=== PATIENT | female | born 1990 | race Caucasian/White ===

== ENCOUNTER 2018-03-12 11:42 | Inpatient (IN) | payer OTHER ==
[~2018-03-12] VITALS: Ht 175.3 cm; Wt 143.3 kg
[2018-03-12 12:03] VITALS: BP 161/88
[2018-03-12 12:34] LABS: HEMATOCRIT 36.4 % (36.0-47.0); HEMOGLOBIN 12.1 g/dL (12.0-15.5); RED BLOOD COUNT 4.01 x10^6/uL (3.50-5.40); RED CELL DISTRIBUTION WIDTH 15.3 % (11.5-14.5); WHITE BLOOD COUNT 12.3 x10^3/uL (4.0-11.0)
[2018-03-12 12:37] LABS: ALBUMIN 3.3 g/dL (3.4-5.0); ALBUMIN/GLOBULIN RATIO 0.8 (1.0-1.7); CALCIUM 9.2 mg/dL (8.5-10.1); CREATININE 0.6 mg/dL (0.6-1.0); GFR 118.2; POTASSIUM 3.9 mmol/L (3.5-5.1); TOTAL BILIRUBIN 2.7 mg/dL (0.2-1.0); TOTAL PROTEIN 7.6 g/dL (6.4-8.2)
[2018-03-12] MEDS ORDERED: IOHEXOL 300 MG/ML 75 ML VIAL. IV ONE (14:00)
[2018-03-12 14:36] VITALS: BP 136/94
--- NOTE | 2018-03-12 15:14 | RAD ---
PQRS Compliance Statement: One or more of the following individualized dose reduction techniques were utilized for this examination: 1. Automated exposure control 2. Adjustment of the mA and/or kV according to patient size 3. Use of iterative reconstruction technique CT CHEST WITH CONTRAST, PULMONARY ANGIOGRAM History: SHORT OF AIR, PNEUMONIA. Comparison: None. Technique: Helical CT of the chest was performed after the administration of 75 cc of Omnipaque 300 intravenous contrast according to PE protocol. Axial and coronal reconstructions were obtained. 3-D MIP images were constructed to better evaluate the pulmonary arteries. Findings: Pulmonary arteries are adequately opacified. There is no evidence of pulmonary embolism. Great vessels are normal caliber. Borderline-enlarged bilateral hilar lymph nodes. No mediastinal adenopathy. Cardiac size upper limits of normal. No pericardial effusion. There is trace right pleural effusion. Central airways are patent. There are patchy bilateral upper lobe groundglass opacities, recently confluent. There is interlobular septal thickening in the right upper and lower lobe. Patchy groundglass opacities are less confluent in the lower lobes than the upper lobes. Patchy groundglass opacities in the right middle lobe. Visualized upper abdomen unremarkable. No compression fracture in the thoracic spine. IMPRESSION: 1. There is no CT evidence of pulmonary embolus. 2. There are upper lobe predominant patchy groundglass opacities throughout the lungs. Considerations include atypical pneumonia or pulmonary edema. 3. Interlobular septal thickening suggests interstitial edema. 4. Trace right pleural effusion. 5. Borderline cardiomegaly. 6. Borderline-enlarged bilateral hilar lymph nodes may be reactive. Electronically signed by: Chavo Chambers MD (03/12/2018 3:11 PM) [id number]
[2018-03-12] MEDS: methylPREDNISolone SOD SUCC PF 40 MG/ML VIAL. IV SCH ×2 (15:25→21:34)
[2018-03-12] MEDS ORDERED: ALBU2.5V5 NEB (15:41)
[2018-03-12] MEDS ORDERED: ALBU8.5H8 INH (15:41)
[2018-03-12] MEDS ORDERED: IPRATRPIUM/ALBUTEROL 0.5/2.5MG 3 ML NEBU. NEB SCH (16:00)
[2018-03-12] MEDS ORDERED: FUROSEMIDE 20 MG/2 ML VIAL IVP ONE (16:30)
[2018-03-12] MEDS: HYDROcodone/APAP 5/325MG 1 TAB TABLET PO PRN ×2 (16:41→21:32)
[2018-03-12] MEDS: ENOXAPARIN 40 MG/0.4 ML SYRINGE. SQ SCH (16:44)
[2018-03-12] MEDS ORDERED: IPRATRPIUM/ALBUTEROL 0.5/2.5MG 3 ML NEBU. NEB PRN (17:00)
[2018-03-12] MEDS ORDERED: LISINOPRIL 5 MG TABLET. PO ONE (18:00)
[2018-03-12] MEDS ORDERED: FUROSEMIDE 40 MG/4 ML VIAL IVP ONE (18:00)
--- NOTE | 2018-03-12 18:00 | CONS ---
DATE OF CONSULTATION: 03/12/2018 REASON FOR CONSULTATION: Dyspnea and cardiomegaly. HISTORY OF PRESENT ILLNESS: The patient is a pleasant 27-year-old female with past medical history as noted below, who presented to the hospital in the setting of worsening cough, shortness of breath and possible exacerbation of asthma. Upon her initial evaluation, she was noted to have an elevated D-dimer and cardiomegaly on chest x-ray. Initial evaluation with CT scan was suggestive of pulmonary edema and therefore she was asked to be evaluated by Cardiology. In speaking with the patient, she has had some progressive dyspnea over the course of the last several weeks. She denies any specific angina. No syncope or palpitations. She reports that approximately 2 years ago, she had preeclampsia during with her twins and at that time was on antihypertensive therapy, but since then has not had any blood pressure medications. PAST MEDICAL HISTORY: 1. Preeclampsia with her 2 years ago. 2. Obesity. 3. Possible asthma. 4. Tobacco abuse related COPD. SOCIAL HISTORY: The patient denies any alcohol or illicit drug use. She smokes regularly. She has twins approximately 2 years old. ALLERGIES: BUPROPION. CURRENT CARDIAC MEDICATIONS: None. The patient did receive Lasix in the Emergency Department. FAMILY HISTORY: Notable for cardiomyopathy with her grandfather having LVAD. REVIEW OF SYSTEMS: Negative for 10 out of 14 systems reviewed, unless otherwise mentioned above in HPI. PHYSICAL EXAMINATION: VITAL SIGNS: Afebrile, 124/24, 136/94, 96% on room air. She is mildly tachypneic and emotional. GENERAL: She is alert and oriented. HEAD AND NECK: Unremarkable. HEART: Tachycardic without any obvious murmurs, rubs or gallops. LUNGS: Diffuse bilateral wheezing. ABDOMEN: Obese, nontender, nondistended. EXTREMITIES: Without any obvious clubbing, cyanosis or edema with diminished pulses diffusely. NEUROLOGIC: No focal deficits. MUSCULOSKELETAL: No trauma. DIAGNOSTIC STUDIES: 1. CTA of the chest is unremarkable for any pulmonary embolism. 2. Lower extremity ultrasound is pending. 3. Limited bedside echocardiogram demonstrated severe LV dysfunction with an ejection fraction of 20-25%. IMPRESSION: Shxon-da-rgiweal systolic and diastolic dysfunction likely secondary to a nonischemic process. Differential diagnoses is hypertension, cardiomyopathy, obstructive sleep apnea, obesity hypoventilation syndrome. RECOMMENDATIONS: 1. We will start the patient on heart failure regimen including aggressive diuresis with close monitoring of her renal function and start her on low dose beta noel and AMERICO inhibitor therapy. 2. We will obtain a full echocardiogram and then consider her for a right and left heart catheterization prior to discharge. Thank you for this consultation. JANELLE AVILES MD DR: AGUILA/anjali JOB#: [id number] / [id number]
[2018-03-12] MEDS: METOPROLOL TART IMMED RELEASE 25 MG TABLET PO SCH (18:18)
[2018-03-12 19:00] LABS: U PREG PATIENT NEGATIVE (NEG)
--- NOTE | 2018-03-12 19:09 | RAD ---
MR#: [id number] Date of Study: 03/12/2018 Ordering Physician: CESAR TURNER, Referring Physician: CESAR TURNER, Tech: Sarah Aranda RDMS, RVT, RTR APPROVED REPORT Lower Extremity Venous Study for DVT Patient Location: IN-PATIENT Indications The bilateral lower extremity deep veins were evaluated for thrombus with color Doppler, spectral and grayscale images. On the right the grayscale images of the common femoral, superficial femoral and popliteal veins do n ot demonstrate any evidence of thrombus and these veins appear to be compressible. The below-knee vei ns were not well visualized but grossly appear to be compressible. Spectral imaging and color Doppler do not reveal any evidence of obstruction to flow with normal respirophasic variation above the knee . Below the knee there is spontaneous flow noted. On the left, the grayscale images of the common femoral, superficial femoral and popliteal veins do n ot demonstrate any evidence of thrombus and these veins appear to be compressible. The below-knee vei ns again were not well visualized but grossly appear to be compressible. Spectral imaging and color D oppler do not reveal any evidence of obstruction to flow with normal respirophasic variation above th e knee. The below-knee veins demonstrate spontaneous flow. Very limited images in the parasternal long axis view of the heart were obtained at the end of the DV T study as the patient was notable to have cardiomegaly. Limited bedside imaging revealed severe LV d ysfunction with estimated ejection fraction of 25%. Critical Notification Critical Value: No <Conclusion> 1. Negative for DVT in the bilateral lower 70s, images are technically limited due to body habitus 2. Very limited imaging with bedside echocardiogram revealed severe LV dysfunction after the DVT stud y was performed. Signed by : Satish Andino, Electronically Approved : 03/12/2018 19:08:21
[2018-03-12 20:17] VITALS: BP 136/95
[2018-03-12] MEDS ORDERED: MONTELUKAST 10 MG TABLET. PO SCH (21:00)
--- NOTE | 2018-03-12 23:01 | HP ---
ADMIT DATE: 03/12/2018 HISTORY OF PRESENT ILLNESS: The patient is a 27-year-old female patient, who was seen at the clinic today and was admitted directly as she has been complaining of shortness of breath, cough with whitish to brownish sputum that has been going on for almost 2 weeks now. She denied any chest pain. Did complain of orthopnea and paroxysmal nocturnal dyspnea. She did complain of exertional dyspnea also. However, her ability to walk is limited as she wears a walking boot to her left ankle joint. PAST MEDICAL HISTORY: Significant for depression, anxiety, and bronchial asthma. FAMILY HISTORY: Unremarkable. SOCIAL HISTORY: She has 4 kids. She just worked at [employer]. She continued to smoke, has been a smoker for almost 18 years. She drinks alcohol occasionally and also smokes marijuana. Does not use any other illicit drugs. PAST SURGICAL HISTORY: Significant for section and bilateral tubal ligation. REVIEW OF SYSTEMS: The patient denied any blurring of vision, cataract, glaucoma or macular degeneration. Denied any earache, tinnitus or sensorineural deafness. Denied any nosebleeds, stuffy nose or postnasal drip. Denied any sore throat, sore tongue, toothache, hoarseness of voice or difficulty swallowing. Denied any nausea, vomiting, diarrhea or constipation. Denied any hematemesis, melena or hematochezia. Denied any dysuria, frequency or hematuria. She did complain of chest tightness, chest pressure as well as shortness of breath, cough with whitish to brownish sputum. She denied any chills, rigors, or fever. Denied any dizziness, lightheadedness, or vertigo. PHYSICAL EXAMINATION: GENERAL: When I examined her, she was resting slightly propped up in bed, in no apparent respiratory distress. She was somewhat pale. She weighs 321 pounds and her body mass index is 47. There was no jaundice or cyanosis. No lymphadenopathy, no thyromegaly. No jugular venous distention, but mild bilateral lower limb edema. VITAL SIGNS: Her heart rate was 125, blood pressure was 161/88, temperature was 98.2, respiratory rate was 24, and oxygen saturation was 98% on room air. HEAD, EYES, EARS, NOSE, and THROAT: Showed normocephalic, atraumatic. NECK: Supple. HEART: Showed normal first and second heart sounds with no gallop, rub or murmur. CHEST: Clear to auscultation. She has bilateral crepitation, more so on the right than left. I could not appreciate any rhonchi. ABDOMEN: Distended, soft, and nontender. No guarding or rigidity. No organomegaly. Hernial orifice intact. Bowel sounds normal. NEUROLOGIC: She is awake, alert, responding appropriately. Cranial nerves intact. She moves extremities without difficulty. She ambulates without assistance or assistive devices. LABORATORY DATA: Showed a serum sodium 137, potassium 3.9, chloride 102, bicarbonate 23, anion gap of 12, BUN 6, creatinine 0.6, estimated GFR was 118 mL per minute. Her glucose was 113, lactic acid 1. Calcium was 9.2. Total bilirubin 2.7. AST, ALT, alkaline phosphatase were normal. Total protein was 7.6, albumin 3.3. Her D-dimer was 1.55. She has had a chest x-ray, which showed bilateral diffuse interstitial mild alveolar infiltrate, differential consideration include an atypical pneumonia or pulmonary edema, borderline cardiomegaly and because of elevated D-dimer and shortness of breath, we did a CT angio of the chest, which showed that: 1. There is no CT scan evidence of pulmonary embolus. 2. There are upper lobe predominant patchy ground-glass opacities throughout the lungs. Considerations include atypical pneumonia or pulmonary edema. 3. Interlobular septal thickenings suggesting interstitial edema. 4. Trace right-sided pleural effusion. 5. Borderline cardiomegaly. 6. Borderline-enlarged bilateral hilar lymph nodes may be reactive. PLAN: My plan is to start her on IV steroids, IV antibiotic in the form of levofloxacin. I will add also DuoNeb as needed as she does not seem to be bronchospastic as well as Mucinex and Singulair. I will also start her on Lovenox 40 mg subcutaneous once a day for DVT prophylaxis. I have started her also on IV Lasix 20 mg once a day today and 40 mg tomorrow morning. I did consult the Cardiology team as I feel that with this prominent cardiomegaly and features of congestive heart failure that she might have underlying cardiac disease, it is possible that these impart her symptoms. CESAR TURNER MD DR: AYAKA/anjali JOB#: [id number] / [id number]
[2018-03-12 23:05] VITALS: BP 116/75
[2018-03-13] MEDS: METOPROLOL TART IMMED RELEASE 25 MG TABLET PO SCH ×2 (00:12→06:03)
[2018-03-13] MEDS: HYDROcodone/APAP 5/325MG 1 TAB TABLET PO PRN (02:54)
[2018-03-13 05:00] VITALS: BP 134/79
[2018-03-13] MEDS: ENOXAPARIN 40 MG/0.4 ML SYRINGE. SQ SCH (06:03)
[2018-03-13] MEDS: methylPREDNISolone SOD SUCC PF 40 MG/ML VIAL. IV SCH (06:04)
[2018-03-13 06:57] LABS: HEMATOCRIT 38.6 % (36.0-47.0); HEMOGLOBIN 12.8 g/dL (12.0-15.5); RED BLOOD COUNT 4.25 x10^6/uL (3.50-5.40); RED CELL DISTRIBUTION WIDTH 15.2 % (11.5-14.5)
[2018-03-13 07:26] LABS: ALBUMIN/GLOBULIN RATIO 0.7 (1.0-1.7); CALCIUM 8.9 mg/dL (8.5-10.1); CREATININE 0.5 mg/dL (0.6-1.0); GFR 145.9; TOTAL BILIRUBIN 1.2 mg/dL (0.2-1.0); TOTAL PROTEIN 7.3 g/dL (6.4-8.2)
[2018-03-13] MEDS ORDERED: FUROSEMIDE 40 MG/4 ML VIAL IVP SCH (09:00)
[2018-03-13] MEDS ORDERED: LISINOPRIL 10 MG TABLET PO SCH (09:00)
--- NOTE | 2018-03-13 09:43 | PDOC ---
PROVIDER NOTE PROVIDER NOTE PROVIDER NOTE S: No acute events overnight. Reports symptoms are much better. Took a shower. O: VSS, BP 136/84 Lungs clr Normal heart tones Minimal edema. Labs stable. Impression: 1. Acute on chronic systolic/diastolic HF Plan 1. Continue present meds 2. Plan for transfer to [place] for cath in a.m. and further plans as needed. JANELLE AVILES MD Mar 13, 2018 09:43
[2018-03-13 11:28] VITALS: BP 122/79
--- NOTE | 2018-03-13 12:13 | DS ---
DATE OF DISCHARGE: 03/13/2018 DISCHARGE TRANSFER SUMMARY HOSPITAL COURSE: The patient is a 27-year-old female patient who came yesterday complaining of shortness of breath, cough with whitish brownish sputum. Her symptoms have been going on for almost 2 weeks now. She denied any chest pain. Did complain of orthopnea and paroxysmal nocturnal dyspnea. Did complain of exertional dyspnea also. However, her ability to walk is limited, as she wears walking boot for her left ankle joint. She was admitted yesterday with a diagnosis of possible atypical pneumonia; however, she has prominent cardiomegaly. We did treat her with IV Lasix together with IV antibiotic as well as nebulized albuterol and Atrovent, steroids, Mucinex and Singulair. Her symptoms have improved this morning. She was seen by the sales and service change leader, Dr. Andino, and apparently, an echocardiogram showed that she has severe cardiomyopathy and a decision was made to transfer her to [place] for cardiac catheterization tomorrow. PHYSICAL EXAMINATION: GENERAL: When I saw her this morning, she looked well and was clearly in no apparent respiratory distress, slightly pale, no jaundice, cyanosis, or thyromegaly. No jugular venous distension. No limb edema. VITAL SIGNS: Her heart rate was 98, blood pressure was 134/79, temperature was 97.8, respiratory rate 20, and oxygen saturation was 97% on room air. HEAD, EYES, EARS, NOSE AND THROAT: Normocephalic, atraumatic. NECK: Supple. HEART: Showed normal first and second heart sounds. No gallop, rub or murmur. CHEST: Shows central trachea, equal bilateral expansion, air entry, vesicular sounds, very few crepitations bilaterally. I could not appreciate any rhonchi. ABDOMEN: Distended, soft, nontender. No guarding or rigidity. No organomegaly. All hernial orifice intact. Bowel sounds normal. NEUROLOGICAL: She was awake, alert, and responding appropriately. All cranial nerves intact. She moves extremities without difficulty. She ambulates without assistance or assistive devices. LABORATORY DATA: Her lab work this morning showed a white cell count of 10,000, hemoglobin 12.8, hematocrit 38.6, MCV 91, and platelet count 292,000. Her chemistry showed a serum sodium 136, potassium 4, chloride 100, bicarbonate 24, anion gap of 12, BUN 9, creatinine 0.5, estimated GFR was 145 mL per minute, her glucose 129, calcium was 8.6. Total bilirubin was 1.2. AST, ALT, alkaline phosphatase were normal. Total protein was 7.3, albumin 3. Her D-dimer was high at 1.55. Urinalysis showed that urine test was negative. DIAGNOSTIC DATA: She did have a CT angio of the chest, which basically showed that: 1. There is no CT evidence of pulmonary embolism. 2. There are upper lobe predominant patchy ground glass opacities throughout the lungs, considerations include atypical pneumonia or pulmonary edema. 3. Interlobular septal thickening suggesting interstitial edema. 4. Trace right pleural effusion. 5. Borderline cardiomegaly. 6. Borderline enlarged bilateral hilar lymph nodes may be reactive. She did have bilateral lower extremity Doppler ultrasound, which showed that was negative for DVT in the bilateral lower extremities. Given the finding clinically and an echocardiogram and a chest x-ray, a decision was made to transfer her to [facility] for cardiac catheterization. DISCHARGE DIAGNOSES: Acute on chronic systolic and diastolic congestive heart failure, community-acquired pneumonia, morbid obesity, depression, anxiety as well as bronchial asthma. CESAR TURNER MD DR: AYAKA/anjali JOB#: [id number] / [id number]
--- NOTE | 2018-03-14 16:36 | DS ---
DATE OF DISCHARGE: 03/13/2018 HOSPITAL COURSE: The patient is a 27-year-old female patient, who was admitted to [facility] with shortness of breath, cough has been going on for almost 2 weeks now and she was started on IV antibiotic in the form of levofloxacin for pneumonia; however, her chest x-ray and CT angio of the chest showed that she has cardiomegaly and features suggestive of congestive heart failure. At the bedside echocardiogram showed that her ejection fraction, which has severe left ventricular dysfunction with an ejection fraction of 20-25%. She was transferred to [facility] where she underwent cardiac catheterization, which showed that the patient has no coronary artery disease, severe left ventricular dysfunction, dilated nonischemic cardiomyopathy and a decision was made to discharge her home to continue on Toprol-XL 25 mg once a day, lisinopril 5 mg once a day and Lasix 40 mg p.o. b.i.d. to follow with the Cardiology Clinic in 1 weeks' time. PHYSICAL EXAMINATION: GENERAL: For discharge, the patient was sitting slightly propped up in bed, in no apparent respiratory distress. No pallor, jaundice, cyanosis, or thyromegaly. No jugular venous distension. No lower limb edema. VITAL SIGNS: Her heart rate was 110, blood pressure was 136/98, temperature was 97.4, respiratory rate was 20, and oxygen saturation was 99% on room air. HEAD, EYES, EARS, NOSE AND THROAT: Normocephalic, atraumatic. NECK: Supple. HEART: Showed normal first and second heart sounds with no gallop, rub or murmur. CHEST: Clear to auscultation. No crepitation or rhonchi. NEUROLOGIC: She is awake, alert, responding appropriately. All cranial nerves intact. EXTREMITIES: She moves extremities without difficulty. She ambulates without assistance or assistive devices. LABORATORY DATA: Her lab work this morning showed a white cell count of 11,000, hemoglobin 12, hematocrit 36, MCV 92, and platelet count of 308,000. Her chemistry showed serum sodium 137, potassium 4.6, chloride 104, bicarbonate 26, anion gap of 7, BUN 13, creatinine 0.6, estimated GFR was 110 mL per minute. Her glucose was 138, calcium was 9.4. Total bilirubin, AST, ALT, alkaline phosphatase were normal. Her total protein was 7.3, albumin was 3.1. DISCHARGE MEDICATIONS: She was discharged home to continue on furosemide 40 mg twice a day, levofloxacin 750 mg once a day for 5 more days, Toprol-XL 25 mg once a day and lisinopril 5 mg once a day. FINAL DISCHARGE DIAGNOSES: 1. Severe left ventricular dysfunction and normal coronary arteries, dilated nonischemic cardiomyopathy. 2. Community-acquired pneumonia. CESAR TURNER MD DR: AYAKA/anjali JOB#: [id number] / [id number]
== END 2018-03-13 12:45 | disposition short-term general hospital (02) | DRG 871 ==
LOC: 1 SOUTH 11:42
PROVIDERS: ADMIT Internal Medicine; ATTEND Internal Medicine
DX: A41.9 Sepsis, unspecified organism (principal); I50.43 Acute on chronic combined systolic (congestive) and diastolic (congestive) heart failure; J18.9 Pneumonia, unspecified organism; I42.0 Dilated cardiomyopathy; J44.0 Chronic obstructive pulmonary disease with (acute) lower respiratory infection; Z68.42 Body mass index [BMI] 45.0-49.9, adult; E66.01 Morbid (severe) obesity due to excess calories; F12.90 Cannabis use, unspecified, uncomplicated; F17.200 Nicotine dependence, unspecified, uncomplicated; F32.9 Major depressive disorder, single episode, unspecified; F41.9 Anxiety disorder, unspecified; R79.1 Abnormal coagulation profile; Z88.8 Allergy status to other drugs, medicaments and biological substances; Z79.899 Other long term (current) drug therapy; Z98.51 Tubal ligation status
CPT/HCPCS: 36415; 71046; 71275; 80053; 81025; 83605; 85027; 85379; 87040; 87449; 93970; 94640; J1650; J1940; J1956; J2920; J7620; Q9967

== ENCOUNTER → 2018-03-12 | Outpatient (CLI) | payer OTHER ==
[~2018-03-12] MED LIST: ALBU2.5V5 NEB; ALBU8.5H8 INH
--- NOTE | 2018-03-12 10:44 | RAD ---
Single view of the chest. 03/12/2018 10:20 AM Indication: cough x 1 week hx of pneumonia Comparison: None available Findings: There is borderline cardiomegaly. There is no pneumothorax or pleural effusion. There is diffuse interstitial infiltrate mild areas of alveolar infiltrate. Differential considerations include atypical pneumonia versus pulmonary edema. No acute osseous changes are identified. IMPRESSION: 1. Bilateral diffuse interstitial and mild alveolar infiltrates. Differential considerations include an atypical pneumonia or pulmonary edema. 2. Borderline cardiomegaly Electronically signed by: Miguel Stacy MD (03/12/2018 10:40 AM) [id number]
== END | disposition home or self-care (01) ==
LOC: RAD 10:11
PROVIDERS: ATTEND Physician Assistant Medical
DX: R91.8 Other nonspecific abnormal finding of lung field (principal)
CPT/HCPCS: 71046

== ENCOUNTER → 2018-07-29 | Outpatient (CLI) | payer OTHER ==
[~2018-07-29] MED LIST changes: +ALBU2.5V8 INH; -ALBU8.5H8 INH
--- NOTE | 2018-07-29 11:42 | CARD ---
MR#: [id number] Date of Study: 07/29/2018 Ordering Physician: JANELLE AVILES, Referring Physician: JANELLE AVILES, Tech: Josefa Etienne HEATHER APPROVED REPORT EXAM: Two-dimensional and M-mode echocardiogram with Doppler and color Doppler. Other Information Quality : Technically LimitedHR: 76bpm Rhythm : NSRTechnically limited study due to body habitus and history of smoking. INDICATION Cardiomyopathy 2D DIMENSIONS RVDd3.4 (2.9-3.5cm)Left Atrium(2D)5.0 (1.6-4.0cm) IVSd0.9 (0.7-1.1cm)Aortic Root(2D)3.2 (2.0-3.7cm) LVDd6.2 (3.9-5.9cm)LVOT Diameter2.5 (1.8-2.4cm) PWd1.2 (0.7-1.1cm)LVDs5.4 (2.5-4.0cm) FS (%) 13.0 %SV53.1 ml LVEF(%)27.3 (>50%) M-Mode DIMENSIONS Left Atrium(MM)5.00 (2.5-4.0cm)Aortic Root3.01 (2.2-3.7cm) Aortic Valve AoV Peak Triston.112.2cm/sAoV VTI22.5cm AO Peak GR.5.0mmHgLVOT Peak Triston.107.3cm/s LVOT VTI 22.11cmAO Mean GR.2mmHg JAMES (VMAX)4.54un2ULM (VTI)4.86cm2 Mitral Valve MV E Iojxhbhi73.0cm/sMV DECEL NZVT328ta MV A Kyjnyprw82.1cm/sE/A Ratio1.9 MV A [id number] Pulmonary Valve PV Peak Fmrszamh985.0cm/sPV Peak Grad.4mmHg LEFT VENTRICLE The Left Ventricle is mildly dilated. There is normal left ventricular wall thickness. The left ventr icular systolic function is severely impaired. The Ejection Fraction is 25%. There is global hypokine sis of the left ventricle. RIGHT VENTRICLE The right ventricle is normal size. There is normal right ventricular wall thickness. The right ventr icular systolic function is normal. ATRIA The left atrium is moderately dilated. The right atrium is moderately dilated. The interatrial septum is intact with no evidence for an atrial septal defect or patent foramen ovale as noted on 2-D or Do ppler imaging. AORTIC VALVE The aortic valve is normal in structure and function. The aortic valve is trileaflet. Doppler and Col or Flow revealed no significant aortic regurgitation. There is no significant aortic valvular stenosi s. MITRAL VALVE The mitral valve is normal in structure and function. There is no evidence of mitral valve prolapse. There is no mitral valve stenosis. Doppler and Color-flow revealed trace to mild mitral regurgitation . TRICUSPID VALVE The tricuspid valve is normal in structure and function. Doppler and Color Flow revealed no tricuspid valve regurgitation noted. There is no tricuspid valve prolapse or vegetation. There is no tricuspid valve stenosis. PULMONIC VALVE The pulmonic valve is not well visualized. GREAT VESSELS The aortic root is normal in size. The ascending aorta is normal in size. PERICARDIAL EFFUSION There is no evidence of significant pericardial effusion. Critical Notification Critical Value: No <Conclusion> The left ventricular systolic function is severely impaired. The Ejection Fraction is 25%. The left atrium is moderately dilated. Trace to mild mitral regurgitation. There is no evidence of significant pericardial effusion. Signed by : Walter Lawrence, Electronically Approved : 07/29/2018 11:42:15
== END | disposition home or self-care (01) ==
LOC: ECHO 10:35
PROVIDERS: ATTEND Internal Medicine Cardiovascular Disease
DX: I34.0 Nonrheumatic mitral (valve) insufficiency (principal); I42.9 Cardiomyopathy, unspecified
CPT/HCPCS: 93306

== ENCOUNTER → 2018-09-10 | Outpatient (CLI) | payer OTHER ==
--- NOTE | 2018-09-10 09:49 | RAD ---
EXAM: Lumbar spine, 2 views. HISTORY: Pain. COMPARISON: None. FINDINGS: 2 views of the lumbar spine are obtained. There is no listhesis. The vertebral harris are normal in height. There are few small endplate Schmorl's nodes and there is minimal anterior endplate remodeling at multiple levels. IMPRESSION: 1. No acute osseous finding. 2. Minimal and endplate remodeling and Schmorl's node formation. Electronically signed by: Jeannie Rogers MD (09/10/2018 9:47 AM) [place] [id number]
== END | disposition home or self-care (01) ==
LOC: RAD 09:22
PROVIDERS: ATTEND Registered Nurse
DX: M51.46 Schmorl's nodes, lumbar region (principal)
CPT/HCPCS: 72100

== ENCOUNTER → 2019-05-13 | Outpatient (CLI) | payer MEDICAID ==
--- NOTE | 2019-05-13 09:48 | RAD ---
AP and Lateral Views of the Chest 05/13/2019 12:00 AM Indication: Cough Comparison: Chest radiograph March 12, 2019 Findings: There is no focal consolidation or infiltrate identified. The cardiomediastinal silhouette is within normal limits. There is no evidence of pneumothorax or pleural effusion. No acute osseous abnormalities are identified. Impression: No evidence of acute cardiopulmonary process. Electronically signed by: Miguel Stacy MD (05/13/2019 9:45 AM) [id number]
== END | disposition home or self-care (01) ==
LOC: PMG 08:52
PROVIDERS: ATTEND Registered Nurse
DX: R05 Cough (principal)
CPT/HCPCS: 71046

== ENCOUNTER → 2019-12-18 | Outpatient (CLI) | payer MEDICAID, OTHER ==
--- NOTE | 2019-12-18 13:49 | RAD ---
EXAM: Pelvic sonogram. HISTORY: Pain. TECHNIQUE: Transabdominal and transvaginal sonographic imaging the pelvis was performed. COMPARISON: None. FINDINGS: The uterus measures 9.9 x 5.7 x 5.1 cm. The endometrial stripe measures 5.6 mm in thickness. The ovaries are normal in size and demonstrate normal blood flow. There is no pelvic free fluid. IMPRESSION: Unremarkable pelvic sonogram. Electronically signed by: Jeannie Rogers MD (12/18/2019 1:46 PM) [facility]
== END | disposition home or self-care (01) ==
LOC: US 12:45
PROVIDERS: ATTEND Physician Assistant Medical
DX: R10.2 Pelvic and perineal pain (principal)
CPT/HCPCS: 76830; 76856

== ENCOUNTER 2019-12-19 22:21 | Observation (INO) | payer OTHER ==
[~2019-12-19] VITALS: Ht 175.3 cm; Wt 136.8 kg
--- NOTE | 2019-12-19 22:55 | PHYS DOC ---
Past History Additional Past Medical Histor: NONISCHEMIC CARDIOMYOPATHY Past Surgical History: Cholecystectomy, , Tubal ligation Smoking: Non-smoker Alcohol Use: Occasionally Drug Use: None Social History LIVE WITH HER General Adult EDM: Chief Complaint: chest pain HPI: HPI: Patient is a 29-year-old female who presented to ER today for evaluation of substernal chest pain started several hours ago. Patient denies any fever, no cough, no trouble breathing. Patient denies abdominal pain, no nausea vomiting. Patient has history of nonischemic cardiomyopathy, at one time her EF was 20%, but now she said is about 50%. Patient is on a heart transplant at . Patient was a former smoker. Review of Systems: Review of Systems: Constitutional: Denies fever or chills Eyes: Denies change in visual acuity HENT: Denies nasal congestion or sore throat Respiratory: Denies cough or shortness of breath Cardiovascular positive for chest pain, no edema GI: Denies abdominal pain, nausea, vomiting, bloody stools or diarrhea : Denies dysuria Musculoskeletal: Denies back pain or joint pain Integument: Denies rash Neurologic: Denies headache, focal weakness or sensory changes Endocrine: Denies polyuria or polydipsia Lymphatic: Denies swollen glands Psychiatric: Denies depression or anxiety Heart Score: HEART Score for Chest Pain: HEART Score for Chest Pain Response (Comments) Value History Moderately Suspicious 1 ECG Nonspecific Repolarizatio 1 Age < 45 0 Risk Factors >3 Risk Factors or Hx CAD 2 Troponin < Normal Limit 0 Total 4 Risk Factors: Risk Factors: DM, Current or recent (<one month) smoker, HTN, HLP, family history of CAD, obesity. Risk Scores: Score 0 - 3: 2.5% MACE over next 6 weeks - Discharge Home Score 4 - 6: 20.3% MACE over next 6 weeks - Admit for Clinical Observation Score 7 - 10: 72.7% MACE over next 6 weeks - Early Invasive Strategies Physical Exam: PE: Constitutional: Well developed, well nourished, no acute distress, non-toxic appearance. [] HENT: Normocephalic, atraumatic, bilateral external ears normal, oropharynx mo ist, no oral exudates, nose normal. [] Eyes: PERRLA, EOMI, conjunctiva normal, no discharge. [] Neck: Normal range of motion, no tenderness, supple, no stridor. [] Cardiovascular:Heart rate regular rhythm, no murmur [] Lungs & Thorax: Bilateral breath sounds clear to auscultation [] Abdomen: Bowel sounds normal, soft, no tenderness, no masses, no pulsatile masses. [] Skin: Warm, dry, no erythema, no rash. [] Back: No tenderness, no CVA tenderness. [] Extremities: No tenderness, no cyanosis, no clubbing, ROM intact, no edema. [] Neurologic: Alert and oriented X 3, normal motor function, normal sensory function, no focal deficits noted. [] Psychologic: Affect normal, judgement normal, mood normal. [] Current Patient Data: Labs: Laboratory Tests Test 12/19/19 22:55 White Blood Count 13.3 x10^3/uL Red Blood Count 4.28 x10^6/uL Hemoglobin 13.3 g/dL Hematocrit 39.6 % Mean Corpuscular Volume 93 fL Mean Corpuscular Hemoglobin 31 pg Mean Corpuscular Hemoglobin Concent 34 g/dL Red Cell Distribution Width 13.7 % Platelet Count 224 x10^3/uL Neutrophils (%) (Auto) 57 % Lymphocytes (%) (Auto) 35 % Monocytes (%) (Auto) 5 % Eosinophils (%) (Auto) 1 % Basophils (%) (Auto) 1 % Neutrophils # (Auto) 7.6 x10^3uL Lymphocytes # (Auto) 4.7 x10^3/uL Monocytes # (Auto) 0.7 x10^3/uL Eosinophils # (Auto) 0.1 x10^3/uL Basophils # (Auto) 0.2 x10^3/uL Sodium Level 141 mmol/L Potassium Level 2.8 mmol/L Chloride Level 106 mmol/L Carbon Dioxide Level 21 mmol/L Anion Gap 14 Blood Urea Nitrogen 11 mg/dL Creatinine 0.6 mg/dL Estimated GFR (Cockcroft-Gault) 116.6 BUN/Creatinine Ratio 18 Glucose Level 90 mg/dL Calcium Level 8.3 mg/dL Magnesium Level 1.8 mg/dL Total Bilirubin 0.3 mg/dL Aspartate Amino Transf (AST/SGOT) 8 U/L Alanine Aminotransferase (ALT/SGPT) 23 U/L Alkaline Phosphatase 82 U/L Troponin I Quantitative < 0.017 ng/mL KR-Doq-C-Type Natriuretic Peptide 242 pg/mL Total Protein 7.2 g/dL Albumin 3.4 g/dL Albumin/Globulin Ratio 0.9 Lipase 101 U/L Current Medications Medications (Trade) Dose Ordered Sig/Amy Route PRN Reason Start Time Stop Time Status Last Admin Dose Admin Potassium Chloride (Klor-Con) 40 meq 1X ONCE PO 12/20/19 00:00 12/20/19 00:01 Aspirin (Aspirin Enteric Coated) 325 mg 1X ONCE PO 12/20/19 00:00 12/20/19 00:01 Potassium Chloride (Klor-Con) 40 meq 1X ONCE PO 12/20/19 02:00 12/20/19 02:01 EKG: EKG: EKG was done at 2224, heart rate of 81 bpm, sinus rhythm, no ST segment elevation. Wide QRS complex. Radiology/Procedures: Radiology/Procedures: [][address] [address] IMAGING REPORT Signed PATIENT: SANGITA CAREY NACCOUNT: [id number] : 1990 LOCATION: ER AGE: 29 SEX: F EXAM STATUS: REG ER ORD. PHYSICIAN: TIERNEY TOLEDO DO REASON: chest pain PROCEDURE: PORTABLE CHEST 1V INDICATION: Reason: chest pain / Spl. Instructions: / History: COMPARISON: May 13, 2019 FINDINGS: Single view of chest obtained. Cardiac silhouette is prominent in size. Hypoexpanded examination without a definite new region of consolidation. IMPRESSION: * No focal airspace consolidation or edema. Electronically signed by: Hossein Paz MD (12/19/2019 11:22 PM) [id number] DICTATED AND SIGNED BY: HOSSEIN PAZ MD DATE: 12/19/19 2322 CC: TIERNEY TOLEDO DO; TEREZA ORTEGA ~ Course & Med Decision Making: Course & Med Decision Making Pertinent Labs and Imaging studies reviewed. (See chart for details) Patient is a 29-year-old female with history of nonischemic cardiomyopathy who presented to ER today for evaluation of chest pain started several hours ago. Patient is actually on a transplant list at for heart condition. EKG and cardiac enzymes normal so far. Her potassium level was 2.8. Patient was given 80 mEq p.o. KCL in the ER. Discussed with hospitalist on-call Dr. Tarango who agreed to admit patient. He wanted patient to be admitted as in patient status. Dragon Disclaimer: Dragon Disclaimer: This electronic medical record was generated, in whole or in part, using a voice recognition dictation system. Departure Departure: Impression: Primary Impression: Chest pain Additional Impression: Hypokalemia Disposition: ADMITTED INPATIENT Condition: STABLE Referrals: TEREZA ORTEGA (PCP) Justification of Admission: Justification of Admission: Justification of Admission Dx: Yes (hypokalemia, chest pain) TIERNEY TOLEDO DO Dec 19, 2019 22:55
[2019-12-19 23:12] LABS: BASO # 0.2 x10^3/uL (0.0-0.2); BASO % 1 % (0-3); EOS # 0.1 x10^3/uL (0.0-0.7); EOS % 1 % (0-3); HEMATOCRIT 39.6 % (36.0-47.0); HEMOGLOBIN 13.3 g/dL (12.0-15.5); LYMPH # 4.7 x10^3/uL (1.0-4.8); LYMPH % 35 % (24-48); MEAN CORPUSCULAR HEMOGLOBIN 31 pg (25-35); MEAN CORPUSCULAR HGB CONC 34 g/dL (31-37); MEAN CORPUSCULAR VOLUME 93 fL (79-100); MONO # 0.7 x10^3/uL (0.0-1.1); MONO % 5 % (0-9); NEUT # 7.6 x10^3uL (1.8-7.7); NEUT % 57 % (31-73); PLATELET COUNT 224 x10^3/uL (140-400); RED BLOOD COUNT 4.28 x10^6/uL (3.50-5.40); RED CELL DISTRIBUTION WIDTH 13.7 % (11.5-14.5); WHITE BLOOD COUNT 13.3 x10^3/uL (4.0-11.0)
--- NOTE | 2019-12-19 23:25 | RAD ---
INDICATION: Reason: chest pain / Spl. Instructions: / History: COMPARISON: May 13, 2019 FINDINGS: Single view of chest obtained. Cardiac silhouette is prominent in size. Hypoexpanded examination without a definite new region of consolidation. IMPRESSION: * No focal airspace consolidation or edema. Electronically signed by: Peng Amaro MD (12/19/2019 11:22 PM) [id number]
[2019-12-19 23:32] LABS: ALBUMIN 3.4 g/dL (3.4-5.0); ALBUMIN/GLOBULIN RATIO 0.9 (1.0-1.7); CALCIUM 8.3 mg/dL (8.5-10.1); CREATININE 0.6 mg/dL (0.6-1.0); GFR 116.6; MAGNESIUM 1.8 mg/dL (1.8-2.4); TOTAL BILIRUBIN 0.3 mg/dL (0.2-1.0); TOTAL PROTEIN 7.2 g/dL (6.4-8.2)
[2019-12-19 23:36] LABS: POTASSIUM 2.8 mmol/L (3.5-5.1)
[2019-12-20] MEDS ORDERED: ASPIRIN ENTERIC COATED 325 MG TABLET.DR. PO ONE
[2019-12-20] MEDS ORDERED: ONDANSETRON PF 4 MG/2 ML VIAL. IVP PRN
[2019-12-20] MEDS ORDERED: METO25TA4 PO (00:25)
[2019-12-20] MEDS ORDERED: SPIR25TA PO (00:25)
[2019-12-20] MEDS ORDERED: SACU1TAB4 PO (00:25)
--- NOTE | 2019-12-20 00:38 | NUR ---
The patient, SANGITA CAREY, 29 y/o, F admitted by CESAR TURNER MD, was given written information regarding hospital policies, unit procedures and contact persons. Valuables were checked and logged. Call light at bedside. Will continue to monitor.
[2019-12-20 01:08] VITALS: BP 133/77
[2019-12-20] MEDS ORDERED: METOPROLOL TART IMMED RELEASE 25 MG TABLET PO SCH (01:15)
[2019-12-20] MEDS: SACUBITRIL/VALSARTAN 49/51MG TABLET. PO SCH ×2 (01:40→08:40)
[2019-12-20 01:48] LABS: BARBITURATES NEG (NEG); BENZODIAZEPINES NEG (NEG); CANNABINOIDS POS (NEG); COCAINE NEG (NEG); METHADONE NEG (NEG); OPIATES NEG (NEG); PHENCYCLIDINE NEG (NEG)
[2019-12-20 01:49] LABS: BACTERIA,URINE 0 /HPF (0-FEW); BILIRUBIN,URINE NEG (NEG); CLARITY,URINE CLEAR; COLOR,URINE YELLOW; GLUCOSE,URINE NEG (NEG); NITRITE,URINE NEG (NEG); RBC,URINE 0 /HPF (0-2); SQUAMOUS EPITHELIAL CELL,UR OCC /LPF; UROBILINOGEN,URINE 0.2 mg/dL (0.2 mg/dL); WBC,URINE RARE /HPF (0-4)
[2019-12-20] MEDS ORDERED: POTASSIUM CHLORIDE 10 MEQ TABLET.ER. PO ONE ×2 (02:00)
[2019-12-20 02:09] LABS: AMPHETAMINE/METHAMPHETAMINE NEG (NEG)
--- NOTE | 2019-12-20 03:21 | NUR ---
Routine cardio consult called at this time. Answering service will send out page at [phone] to [place].
[2019-12-20 07:30] LABS: BASO # 0.1 x10^3/uL (0.0-0.2); BASO % 1 % (0-3); EOS # 0.1 x10^3/uL (0.0-0.7); EOS % 1 % (0-3); HEMATOCRIT 38.2 % (36.0-47.0); HEMOGLOBIN 12.8 g/dL (12.0-15.5); LYMPH # 5.2 x10^3/uL (1.0-4.8); LYMPH % 46 % (24-48); MEAN CORPUSCULAR HEMOGLOBIN 31 pg (25-35); MEAN CORPUSCULAR HGB CONC 33 g/dL (31-37); MEAN CORPUSCULAR VOLUME 93 fL (79-100); MONO # 0.6 x10^3/uL (0.0-1.1); MONO % 5 % (0-9); NEUT # 5.4 x10^3uL (1.8-7.7); NEUT % 47 % (31-73); PLATELET COUNT 215 x10^3/uL (140-400); RED BLOOD COUNT 4.13 x10^6/uL (3.50-5.40); RED CELL DISTRIBUTION WIDTH 13.7 % (11.5-14.5); WHITE BLOOD COUNT 11.3 x10^3/uL (4.0-11.0)
[2019-12-20 07:46] LABS: ALBUMIN 3.1 g/dL (3.4-5.0); ALBUMIN/GLOBULIN RATIO 0.9 (1.0-1.7); CALCIUM 8.4 mg/dL (8.5-10.1); CREATININE 0.4 mg/dL (0.6-1.0); GFR 186.2; POTASSIUM 4.3 mmol/L (3.5-5.1); TOTAL BILIRUBIN 0.3 mg/dL (0.2-1.0); TOTAL PROTEIN 6.6 g/dL (6.4-8.2)
[2019-12-20] MEDS ORDERED: SPIRONOLACTONE 25 MG TABLET PO SCH (09:00)
[2019-12-20 11:15] VITALS: BP 130/64
[2019-12-20 15:36] VITALS: BP 147/97
--- NOTE | 2019-12-20 16:02 | NUR ---
Reviewed discharge instructions with Brianne, including diet, medications, restrictions and follow up. Brianne verbalized understanding. PIV removed, band aid placed. Pt left with all belongings including cell phone, purse, clothing, discharge paperwork. Pt left unit at 1602
--- NOTE | 2019-12-20 16:10 | SSS ---
ADMIT DATE: 12/20/2019 HISTORY OF PRESENT ILLNESS: The patient is a 29-year-old female patient who came to the Emergency Room complaining of chest pain that started several hours prior to arrival. She denied any fever, cough, or trouble breathing. She stated that the pain was about 6/8 in severity. There was no nausea, vomiting, no diaphoresis. She apparently is known to have nonischemic cardiomyopathy. At one time, her ejection fraction was 20%, but now she said it is about 50%. She is on heart transplant list at [facility]. Her cardiac catheterization was done about a year ago, and at that time, she was told that her coronary arteries are clear. She was evaluated in the Emergency Room and has had 3 sets of cardiac enzymes that ruled out myocardial infarction, all the troponin was less than 0.017. Her potassium was low at 2.8 and it was replenished and now it is 4.3, and given that she has ischemic cardiomyopathy that has improved and there is no known coronary artery disease, a decision was made to discharge her home to follow with her carbon paper coating machine setter at [facility]. PAST MEDICAL HISTORY: Significant for nonischemic cardiomyopathy, morbid obesity, obstructive sleep apnea, hypertension, and hyperlipidemia. She has had sleep study done at home and she is scheduled to have day machine on 01/07/2020. PAST SURGICAL HISTORY: Significant for 3 C-sections, cholecystectomy, and also esophagogastroduodenoscopy. ALLERGIES: She is allergic to WELLBUTRIN. MEDICATIONS: She is currently on following medications: She is on metoprolol tartrate 25 mg at bedtime. She is on Entresto 97/103 mg 1 tablet twice a day and spironolactone 25 mg, she takes half a tablet in the morning. FAMILY HISTORY: She has 1 brother and 1 sister younger and both healthy. She does not know her biological father. Her mother is still alive at age of 48 and has fibromyalgia. SOCIAL HISTORY: She is , has 3 sons and 1 daughter. She quit smoking, does not drink alcohol; however, she continued to smoke marijuana. 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 REVIEW OF SYSTEMS: The patient denies any blurring of vision, cataract, glaucoma or macular degeneration. Denied any earache, tinnitus, or sensorineural deafness. Denied any nosebleeds, stuffy nose, or postnasal drip. Denied any sore throat, sore tongue, toothache, hoarseness of voice, or difficulty swallowing. Denied any nausea, vomiting, diarrhea, or constipation. Denied any hematemesis, melena, or hematochezia. Denied any dysuria, frequency, or hematuria. Did complain obviously of chest pain and shortness of breath. PHYSICAL EXAMINATION: GENERAL: On arrival to the Emergency Room, the patient looked well and was clearly in no apparent respiratory distress. No pallor, jaundice, cyanosis, or thyromegaly. No jugular venous distention. No lower limb edema. VITAL SIGNS: Her heart rate was 78, blood pressure was 112/64, temperature 97.8, respiratory rate was 20, and oxygen saturation was 97%. HEAD, EYES, EARS, NOSE, AND THROAT: Normocephalic, atraumatic. NECK: Supple. HEART: Showed normal first and second heart sounds. No gallop or murmur. CHEST: Clear to auscultation. No crepitation or rhonchi. ABDOMEN: Distended, soft, nontender. NEUROLOGIC: She is awake, alert, responding appropriately. All cranial nerves intact. EXTREMITIES: She moves extremities without difficulty. She ambulates without assistance or assistive devices. LABORATORY DATA: Showed a white cell count of 13,300, hemoglobin 13.3, hematocrit 39, MCV 93, and platelet count 224,000. Her chemistry showed initially a serum sodium 141, potassium 2.8, chloride 106, bicarbonate 21, anion gap of 14, BUN 11, creatinine 0.6, estimated GFR was 116 mL per minute. Her glucose was 90, calcium was 8.3, magnesium was 1.8. Total bilirubin, AST, ALT, alkaline phosphatase were normal. Her beta-natriuretic peptide was 242. Total protein was 7.2, albumin was 3.7. Lipase was 101. Her prothrombin time, INR and aPTT are all normal. Urinalysis was essentially unremarkable. Toxic screen was positive for cannabinoids and alcohol. She had 3 sets of cardiac enzymes, showed troponin to be less than 0.017. Repeated lab works this afternoon showed a serum sodium 140, potassium 4.3, chloride 106, bicarbonate 24, anion gap of 10, BUN 9, creatinine 0.4, estimated GFR was 106 mL per minute. Her glucose 103, calcium was 8.4. Total bilirubin, AST, ALT, alkaline phosphatase were normal. Total protein 6.6, albumin 3.1. ASSESSMENT AND PLAN: The patient was discharged home to continue on metoprolol tartrate 25 mg at bedtime, Entresto 97/103 mg 1 tablet twice a day, spironolactone 25 mg to take half a tablet in the morning. FINAL DISCHARGE DIAGNOSES: Atypical chest pain, likely due to gastroesophageal reflux disease, hypokalemia that has resolved. The patient has nonischemic cardiomyopathy, hypertension, morbid obesity, and obstructive sleep apnea. The patient was advised to follow with her primary care physician as well as the carbon paper coating machine setter at [facility]. CESAR TURNER MD DR: AYAKA/anjali JOB#: [id number] / [id number]
--- NOTE | 2019-12-20 17:39 | PDOC2 ---
CONSULT DOS: DATE: 12/20/19 TIME: 17:34 Reason for Consult: Chest pain, shortness of breath Referring Physician: Dr. Tarango Chief Complaint Chest pain Source: Chart review, Patient Problem List Problems Medical Problems: (1) Chest pain Status: Acute (2) Hypokalemia Status: Acute History of Present Illness The patient is a 29-year-old female who developed an episode of chest pressure and mild shortness of breath last evening and came to the emergency room. In the emergency room the patient's EKG showed no acute ischemic changes. Chest x- ray also showed no acute changes. Initial troponin was normal. Patient reports a history of a cardiomyopathy with reportedly previous ejection fraction of 20%. By her report this is increased to 50% and she is followed at . Additionally potassium level was decreased to 2.8. Patient was monitored overnight and this morning is feeling well. Her chest pain has resolved. Her shortness of breath has resolved. Cardiovascular: HTN, hyperipidemia, Other (Cardiomyopathy) Pulmonary: Other (Obstructive sleep apnea) Past Surgical History: Cholecystectomy, , Tubal Ligation Family History: Hypertension Smoke: Quit ALCOHOL: occassional Current Medications Current Medications Potassium Chloride (Klor-Con) 40 meq 1X ONCE PO Last administered on 12/19/19at 23:52; Start 12/20/19 at 00:00; Stop 12/20/19 at 00:02; Status DC Aspirin (Aspirin Enteric Coated) 325 mg 1X ONCE PO Last administered on 12/19/19at 23:52; Start 12/20/19 at 00:00; Stop 12/20/19 at 00:02; Status DC Potassium Chloride (Klor-Con) 40 meq 1X ONCE PO Last administered on 12/20/19at 01:40; Start 12/20/19 at 02:00; Stop 12/20/19 at 02:01; Status DC Ondansetron HCl (Zofran) 4 mg PRN Q4HRS PRN IVP NAUSEA/VOMITING 1st choice; Start 12/20/19 at 00:00; Stop 12/20/19 at 16:06; Status DC Metoprolol Tartrate (Lopressor) 25 mg QHS PO Last administered on 12/20/19at 01:40; Start 12/20/19 at 01:15; Stop 12/20/19 at 16:06; Status DC Spironolactone (Aldactone) 12.5 mg QAM PO Last administered on 12/20/19at 08:16; Start 12/20/19 at 09:00; Stop 12/20/19 at 16:06; Status DC Sacubitril/ Valsartan (Entresto 49 Mg-51 Mg) 2 tab BID PO Last administered on 12/20/19at 08:40; Start 12/20/19 at 01:30; Stop 12/20/19 at 16:06; Status DC Active Scripts Active Reported Aldactone (Spironolactone) 25 Mg Tablet 12.5 Mg PO QAM Metoprolol Tartrate 25 Mg Tablet 25 Mg PO QHS Entresto 97 mg-103 mg Tablet (Sacubitril/Valsartan) 1 Each Tablet 1 Each PO BID Allergies: Coded Allergies: bupropion (Verified Allergy, Intermediate, shakes, 12/19/19) Respiratory: YES: SOB with excertion Cardiovascular: yes: Chest Pain General: No acute distress HEENT: Atraumatic Lungs: Clear to auscultation Heart: Regular rate Abdomen: Normal bowel sounds VITALS Vital Signs Date Time Temp Pulse Resp B/P (MAP) Pulse Ox O2 Delivery O2 Flow Rate FiO2 12/20/19 15:36 60 15 147/97 (114) 100 Room Air 12/20/19 11:15 97.7 12/20/19 08:00 2.0 Labs Laboratory Tests Test 12/19/19 22:55 12/20/19 01:15 12/20/19 03:00 12/20/19 06:55 White Blood Count 13.3 x10^3/uL (4.0-11.0) 11.3 x10^3/uL (4.0-11.0) Red Blood Count 4.28 x10^6/uL (3.50-5.40) 4.13 x10^6/uL (3.50-5.40) Hemoglobin 13.3 g/dL (12.0-15.5) 12.8 g/dL (12.0-15.5) Hematocrit 39.6 % (36.0-47.0) 38.2 % (36.0-47.0) Mean Corpuscular Volume 93 fL (79-100) 93 fL (79-100) Mean Corpuscular Hemoglobin 31 pg (25-35) 31 pg (25-35) Mean Corpuscular Hemoglobin Concent 34 g/dL (31-37) 33 g/dL (31-37) Red Cell Distribution Width 13.7 % (11.5-14.5) 13.7 % (11.5-14.5) Platelet Count 224 x10^3/uL (140-400) 215 x10^3/uL (140-400) Neutrophils (%) (Auto) 57 % (31-73) 47 % (31-73) Lymphocytes (%) (Auto) 35 % (24-48) 46 % (24-48) Monocytes (%) (Auto) 5 % (0-9) 5 % (0-9) Eosinophils (%) (Auto) 1 % (0-3) 1 % (0-3) Basophils (%) (Auto) 1 % (0-3) 1 % (0-3) Neutrophils # (Auto) 7.6 x10^3uL (1.8-7.7) 5.4 x10^3uL (1.8-7.7) Lymphocytes # (Auto) 4.7 x10^3/uL (1.0-4.8) 5.2 x10^3/uL (1.0-4.8) Monocytes # (Auto) 0.7 x10^3/uL (0.0-1.1) 0.6 x10^3/uL (0.0-1.1) Eosinophils # (Auto) 0.1 x10^3/uL (0.0-0.7) 0.1 x10^3/uL (0.0-0.7) Basophils # (Auto) 0.2 x10^3/uL (0.0-0.2) 0.1 x10^3/uL (0.0-0.2) Prothrombin Time 9.9 SEC (9.4-11.4) Prothromb Time International Ratio 1.0 (0.9-1.1) Activated Partial Thromboplast Time 27 SEC (23-33) Sodium Level 141 mmol/L (136-145) 140 mmol/L (136-145) Potassium Level 2.8 mmol/L (3.5-5.1) 4.3 mmol/L (3.5-5.1) Chloride Level 106 mmol/L (98-107) 106 mmol/L (98-107) Carbon Dioxide Level 21 mmol/L (21-32) 24 mmol/L (21-32) Anion Gap 14 (6-14) 10 (6-14) Blood Urea Nitrogen 11 mg/dL (7-20) 9 mg/dL (7-20) Creatinine 0.6 mg/dL (0.6-1.0) 0.4 mg/dL (0.6-1.0) Estimated GFR (Cockcroft-Gault) 116.6 186.2 BUN/Creatinine Ratio 18 (6-20) 23 (6-20) Glucose Level 90 mg/dL (70-99) 103 mg/dL (70-99) Calcium Level 8.3 mg/dL (8.5-10.1) 8.4 mg/dL (8.5-10.1) Magnesium Level 1.8 mg/dL (1.8-2.4) Total Bilirubin 0.3 mg/dL (0.2-1.0) 0.3 mg/dL (0.2-1.0) Aspartate Amino Transf (AST/SGOT) 8 U/L (15-37) 7 U/L (15-37) Alanine Aminotransferase (ALT/SGPT) 23 U/L (14-59) 19 U/L (14-59) Alkaline Phosphatase 82 U/L (46-116) 72 U/L (46-116) Troponin I Quantitative < 0.017 ng/mL (0-0.055) < 0.017 ng/mL (0-0.055) < 0.017 ng/mL (0-0.055) UW-Ujm-F-Type Natriuretic Peptide 242 pg/mL (0-124) Total Protein 7.2 g/dL (6.4-8.2) 6.6 g/dL (6.4-8.2) Albumin 3.4 g/dL (3.4-5.0) 3.1 g/dL (3.4-5.0) Albumin/Globulin Ratio 0.9 (1.0-1.7) 0.9 (1.0-1.7) Lipase 101 U/L (73-393) Urine Collection Type Void Urine Color Yellow Urine Clarity Clear Urine pH 6.0 Urine Specific [place] <=1.005 Urine Protein Neg (NEG-TRACE) Urine Glucose (UA) Neg mg/dL (NEG) Urine Ketones (Stick) Neg mg/dL (NEG) Urine Blood Trace (NEG) Urine Nitrite Neg (NEG) Urine Bilirubin Neg (NEG) Urine Urobilinogen Dipstick 0.2 mg/dL (0.2 mg/dL) Urine Leukocyte Esterase Neg (NEG) Urine RBC 0 /HPF (0-2) Urine WBC Rare /HPF (0-4) Urine Squamous Epithelial Cells Occ /LPF Urine Bacteria 0 /HPF (0-FEW) Urine Opiates Screen Neg (NEG) Urine Methadone Screen Neg (NEG) Urine Barbiturates Neg (NEG) Urine Phencyclidine Screen Neg (NEG) Urine Amphetamine/Methamphetamine Neg (NEG) Urine Benzodiazepines Screen Neg (NEG) Urine Cocaine Screen Neg (NEG) Urine Cannabinoids Screen Pos (NEG) Urine Ethyl Alcohol Pos (NEG) Images Chest x-ray with no acute changes. Assessment/Plan 1. Chest pain. Resolved. No acute ischemic EKG changes. Initial troponin normal. Will complete rule out with 3 sets of enzymes. May gradually increase activities. We will continue home medications. 2. Reported history of a nonischemic cardiomyopathy. Reported ejection fraction of 20% in the past but now increased to 50%. The patient is on appropriate medications. She is followed at . 3. Hypertension. Pressure now controlled. Continue present treatment. 4. Hyperlipidemia. Followed at . 5. Reported obstructive sleep apnea. Work-up in progress with CPAP machine being obtained. Thank you for allowing us to participate in the care of your patient. JACKI COOL MD Dec 20, 2019 17:39
--- NOTE | 2019-12-21 06:50 | EKG ---
[address] [address] Test Date: 2019-12-19 Test Time: 22:24:45 Pat Name: SANGITA CAREY Department: Room: 117 A Gender: F Medication Care Manager: CHELE : 1990 Requested By: TIERNEY TOLEDO Order Number: [id number] Reading MD: Satish Andino MD Measurements Intervals [place] Rate: 81 P: 73 CT: 178 QRS: -26 QRSD: 150 T: 95 QT: 400 QTc: 465 Interpretive Statements SINUS RHYTHM LBBB POOR R WAVE PROGRESSION Electronically Signed On 12-22-2019 9:09:49 CDT by Satish Andino MD
== END 2019-12-20 16:02 | disposition home or self-care (01) ==
LOC: ER 22:21 → OBSVTOIN 12-20 00:02 → MERGE 12-20 00:02 → 1 SOUTH 12-20 00:02 → INTOOBSV 12-20 00:02
PROVIDERS: ADMIT Internal Medicine; ATTEND Internal Medicine
DX: R07.89 Other chest pain (principal); E87.6 Hypokalemia; I10 Essential (primary) hypertension; E66.01 Morbid (severe) obesity due to excess calories; E78.5 Hyperlipidemia, unspecified; G47.33 Obstructive sleep apnea (adult) (pediatric); I25.5 Ischemic cardiomyopathy; F12.90 Cannabis use, unspecified, uncomplicated; I42.8 Other cardiomyopathies; Z79.899 Other long term (current) drug therapy
CPT/HCPCS: 36415; 71045; 80053; 80307; 81001; 83690; 83735; 83880; 84484; 85025; 85610; 85730; 93005; 99285; G0378; G0379

== ENCOUNTER 2020-01-04 21:05 | Emergency (ER) | payer OTHER ==
[~2020-01-04] VITALS: Ht 175.3 cm; Wt 140.7 kg
[~2020-01-04 21:05] MED LIST changes: +METO25TA4 PO; +SACU1TAB4 PO; +SPIR25TA PO
[2020-01-04] MEDS ORDERED: NEOMY/BACITR/POLYMYXIN OINT PACKET. TP ONE (21:20)
--- NOTE | 2020-01-04 21:39 | PHYS DOC ---
Past History Past Medical History: Angina, Gallstones, High Cholesterol, Heart Disease, Hypertension, Other Additional Past Medical Histor: NONISCHEMIC CARDIOMYOPATHY Past Surgical History: Cholecystectomy, , Tubal ligation Smoking: Non-smoker Alcohol Use: Occasionally Drug Use: None General Adult EDM: Chief Complaint: ABDOMINAL PAIN HPI: HPI: The history was obtained from the patient. Patient is a 29-year-old female with PMH , cholecystectomy, tubal ligation who presents with a chief complaint of right lower quadrant abdominal discomfort for the past 2 weeks. She states the pain is been intermittent at first but became more severe today. States pain is sharp in nature. States she has not had much of an appetite today. Denies any fevers. Notes nausea without vomiting. Is tried Tylenol at home with no relief. Denies dysuria, hematuria, polyuria. Denies any vaginal bleeding or discharge. States first day of her last menstrual period was 1 week ago. No she has a history of large asymptomatic cyst on the right that was removed during 1 of her C-sections. No other complaints. Review of Systems: Review of Systems: Constitutional: Denies fever or chills Eyes: Denies change in visual acuity HENT: Denies nasal congestion or sore throat Respiratory: Denies cough or shortness of breath Cardiovascular: Denies chest pain or edema GI: Positive for abdominal pain : Denies dysuria Musculoskeletal: Denies back pain or joint pain Integument: Denies rash Neurologic: Denies headache, focal weakness or sensory changes Endocrine: Denies polyuria or polydipsia Lymphatic: Denies swollen glands Psychiatric: Denies depression or anxiety Heart Score: Risk Factors: Risk Factors: DM, Current or recent (<one month) smoker, HTN, HLP, family history of CAD, obesity. Risk Scores: Score 0 - 3: 2.5% MACE over next 6 weeks - Discharge Home Score 4 - 6: 20.3% MACE over next 6 weeks - Admit for Clinical Observation Score 7 - 10: 72.7% MACE over next 6 weeks - Early Invasive Strategies Current Medications: Current Meds: Current Medications Medications (Trade) Dose Ordered Sig/Amy Start Time Stop Time Status Last Admin Dose Admin Info (Do NOT chart on this entry -- for MONITORING) 1 each PRN DAILY PRN 01/04/20 21:45 01/06/20 21:44 Iohexol (Omnipaque 300 Mg/ml) 75 ml 1X ONCE 01/04/20 22:00 01/04/20 22:01 Neomycin/ Polymyxin/ Bacitracin (Triple Antibiotic Ointment) 1 pkt STK-MED ONCE 01/04/20 21:20 01/04/20 21:20 DC Allergies: Allergies: Allergies Coded Allergies Type Severity Reaction Last Updated Verified bupropion Allergy Unknown seizure 08/04/13 Yes Physical Exam: PE: Constitutional: Well developed, well nourished, no acute distress, non-toxic appearance. [] HENT: Normocephalic, atraumatic, bilateral external ears normal, oropharynx moist, no oral exudates, nose normal. [] Eyes: PERRLA, EOMI, conjunctiva normal, no discharge. [] Neck: Normal range of motion, no tenderness, supple, no stridor. [] Cardiovascular:Heart rate regular rhythm, no murmur [] Lungs & Thorax: Bilateral breath sounds clear to auscultation [] Abdomen: Mild reproducible right lower quadrant tenderness to palpation. No involuntary guarding or rigidity noted. No acute peritonitis. Skin: Warm, dry, no erythema, no rash. [] Back: No tenderness, no CVA tenderness. [] Extremities: No tenderness, no cyanosis, no clubbing, ROM intact, no edema. [] Neurologic: Alert and oriented X 3, normal motor function, normal sensory function, no focal deficits noted. [] Psychologic: Affect normal, judgement normal, mood normal. [] Current Patient Data: Labs: Laboratory Tests Test 01/04/20 21:25 01/04/20 21:39 01/04/20 21:40 Urine Collection Type Unknown Urine Color Yellow Urine Clarity Clear Urine pH 7.0 Urine Specific [place] 1.025 Urine Protein Neg Urine Glucose (UA) Neg mg/dL Urine Ketones (Stick) Neg mg/dL Urine Blood Trace Urine Nitrite Neg Urine Bilirubin Neg Urine Urobilinogen Dipstick 1.0 mg/dL Urine Leukocyte Esterase Neg Urine RBC 1-2 /HPF Urine WBC 1-4 /HPF Urine Squamous Epithelial Cells Many /LPF Urine Bacteria Few /HPF Bedside Urine HCG, Qualitative hcg negative White Blood Count 13.6 x10^3/uL Red Blood Count 4.39 x10^6/uL Hemoglobin 13.5 g/dL Hematocrit 40.8 % Mean Corpuscular Volume 93 fL Mean Corpuscular Hemoglobin 31 pg Mean Corpuscular Hemoglobin Concent 33 g/dL Red Cell Distribution Width 14.0 % Platelet Count 241 x10^3/uL Neutrophils (%) (Auto) 63 % Lymphocytes (%) (Auto) 31 % Monocytes (%) (Auto) 4 % Eosinophils (%) (Auto) 1 % Basophils (%) (Auto) 0 % Neutrophils # (Auto) 8.6 x10^3uL Lymphocytes # (Auto) 4.3 x10^3/uL Monocytes # (Auto) 0.6 x10^3/uL Eosinophils # (Auto) 0.2 x10^3/uL Basophils # (Auto) 0.0 x10^3/uL Sodium Level 138 mmol/L Potassium Level 4.3 mmol/L Chloride Level 103 mmol/L Carbon Dioxide Level 26 mmol/L Anion Gap 9 Blood Urea Nitrogen 14 mg/dL Creatinine 0.7 mg/dL Estimated GFR (Cockcroft-Gault) 97.6 BUN/Creatinine Ratio 20 Glucose Level 106 mg/dL Calcium Level 9.3 mg/dL Total Bilirubin 0.4 mg/dL Aspartate Amino Transf (AST/SGOT) 14 U/L Alanine Aminotransferase (ALT/SGPT) 20 U/L Alkaline Phosphatase 102 U/L Total Protein 7.5 g/dL Albumin 3.5 g/dL Albumin/Globulin Ratio 0.9 Lipase 63 U/L Current Medications Medications (Trade) Dose Ordered Sig/Amy Route PRN Reason Start Time Stop Time Status Last Admin Dose Admin Neomycin/ Polymyxin/ Bacitracin (Triple Antibiotic Ointment) 1 pkt STK-MED ONCE TP 01/04/20 21:20 01/04/20 21:20 DC Iohexol (Omnipaque 300 Mg/ml) 75 ml 1X ONCE IV 01/04/20 22:00 01/04/20 22:01 DC 01/04/20 21:43 Info (Do NOT chart on this entry -- for MONITORING) 1 each PRN DAILY PRN MC SEE COMMENTS 01/04/20 21:45 01/06/20 21:44 Morphine Sulfate (Morphine 4mg Syringe) 4 mg 1X ONCE IV 01/04/20 23:30 01/04/20 23:31 DC 01/04/20 23:24 Vital Signs: Vital Signs Date Time Temp Pulse Resp B/P (MAP) Pulse Ox O2 Delivery O2 Flow Rate FiO2 01/04/20 23:24 18 96 01/04/20 21:10 98.8 83 20 125/89 (101) 96 Room Air EKG: EKG: [] Radiology/Procedures: Radiology/Procedures: [address] [address] IMAGING REPORT Signed PATIENT: SANGITA CAREY NACCOUNT: [id number] : 1990 LOCATION: ER AGE: 29 SEX: F EXAM STATUS: REG ER ORD. PHYSICIAN: SREE DAMON DO REASON: RLQ pain PROCEDURE: US PELVIS W/TV US PELVIS W/TV History: Reason: RLQ pain / Spl. Instructions: / History: Comparison: CT January 04, 2020. Technique: Grayscale and color Doppler imaging of the pelvis was performed using transabdominal and transvaginal technique. Findings: The uterus measures 9.0 x 4.7 x 4.4 cm. Trace nonspecific fluid within the cervical canal.. The endometrial stripe measures 8.7 mm. Right ovary measures 2.7 x 2.1 x 1.8 cm. Normal blood flow to the right ovary. Left ovary not identified due to positioning and overlying structures. No adnexal masses are seen. IMPRESSION: 1. Trace nonspecific fluid within the cervical canal. 2. Left ovary not identified. Electronically signed by: Hitesh Sullivan DO (01/04/2020 10:54 PM) [facility] DICTATED AND SIGNED BY: HITESH SULLIVAN DO DATE: 01/04/20 2254 CC: TEREZA ORTEGA; SREE DAMON DO ~ [address] [address] IMAGING REPORT Signed PATIENT: SANGITA CAREY NACCOUNT: [id number] : 1990 LOCATION: ER AGE: 29 SEX: F EXAM STATUS: REG ER ORD. PHYSICIAN: SREE DAMON DO REASON: RLQ pain PROCEDURE: CT ABD PELV W/ IV CONTRST ONLY EXAM: CT ABDOMEN/PELVIS WITH CONTRAST. HISTORY: Right lower quadrant pain. TECHNIQUE: Computed tomography of the abdomen and pelvis was performed after the intravenous administration of iodinated contrast. One or more of the following individualized dose reduction techniques were utilized for this examination: 1. Automated exposure control. 2. Adjustment of the mA and/or kV according to patient size. 3. Use of iterative reconstruction technique. COMPARISON: None. FINDINGS: Lung windows through the visualized portions of the bases reveal mild atelectasis. Bone windows reveal no suspicious lesions. 2 calculi in the left renal lower pole measure up to 3 mm. The right kidney is unremarkable. The gallbladder is surgically absent. The liver, pancreas, adrenal glands and spleen are unremarkable. The appendix is not inflamed. There is no small bowel obstruction. The uterus and ovaries are unremarkable by CT. A small umbilical hernia contains only fat. There are 2 soft tissue density nodules within the subcutaneous fat on the right lower quadrant measuring up to 2.4 x 1.4 cm and 2.8 x 1.2 cm respectively. IMPRESSION: 1. 2 soft tissue density nodules within the subcutaneous fat of the right lower quadrant may represent scarring in a prior surgical scar. Other considerations may include endometriosis along the surgical scar. These foci are amenable to percutaneous ultrasound-guided biopsy if the diagnosis remains unclear. 2. Small fat-containing umbilical hernia. 3. Left renal calculi measure up to 3 mm. Electronically signed by: Aime Rowland MD (01/04/2020 10:13 PM) [facility] DICTATED AND SIGNED BY: QUAN ROWLAND MD DATE: 01/04/20 3213 CC: TEREZA ORTEGA; SREE DAMON DO ~ [] Course & Med Decision Making: Course & Med Decision Making Pertinent Labs and Imaging studies reviewed. (See chart for details) [] Patient is a 29-year-old female who presents with chief complaint of right lower quadrant abdominal discomfort intermittently over the past 2 weeks. Initial vital signs grossly unremarkable. Abdominal exam overall reassuring. No tenderness to deep palpation in all quadrants. Laboratory analysis reveals very mild leukocytosis of 13,000. Urine without evidence of infection. CT imaging reveals no acute abnormality to explain the patient's discomfort. Ultrasound imaging does not reveal any signs of ovarian torsion or abscess. Left ovary not visualized however the patient's discomfort is localized to the right. Patient's pain was well controlled. Repeat abdominal exam is benign. She has tolerated p.o. Vital signs been stable. I do feel she is overall appropriate for discharge home with close monitoring. She was instructed to return in 12 to 24 hours should her symptoms not improve or worsen. She was ins tructed to follow-up with her primary care physician in the next 2 to 3 days. She is agreeable to this plan. Stable for discharge home. Dragon Disclaimer: Dragon Disclaimer: This electronic medical record was generated, in whole or in part, using a voice recognition dictation system. Departure Departure: Impression: Primary Impression: Abdominal pain Qualified Codes: R10.31 - Right lower quadrant pain Disposition: HOME/RESIDENCE PRIOR TO ADM Condition: STABLE Referrals: TEREZA ORTEGA (PCP) Additional Instructions: Discharge Abdominal Pain Re-Check Precautions: I'm unsure of the specific cause of your abdominal pain. However, at this point I feel that you are low risk for a life threatening emergency and that discharge from the Emergency Department is safe. There is a very small poss ibility that you are just too early in your clinical course for our physical exam/labs/imaging to ascertain whether or not you have an emergent condition that could potentially cause permanent disability or be life threatening. As such, it is very important that you follow up with your primary doctor or return to the Emergency Department in 12-24 hours for re-assessment and further evaluation if clinically indicated. If you develop new or worsening symptoms then you should return to the Emergency Department immediately. Home Care Instructions: Abdominal Pain Many things may cause abdominal pain. Your ER visit might not show the exact reason you are having pain. In some cases, additional time is needed to determine if the cause is serious. Therefore you may be told to go home and watch for any changes or worsening in your condition. Before that, we may not know if you need more testing, or if hospitalization or surgery is necessary. If its not something serious, the pain may go away without treatment or get better with simple things like avoiding certain foods or medications. In the ER, your doctor asks you questions, examines you and in some cases, may order tests. These help doctors decide if the pain is from something serious. Tests are not always done and may not provide a definite answer. There can still be a problem, even with normal test results. Abdominal pain may be caused by something serious (like appendicitis), which is not obvious right away. Because of this, another checkup is needed to make sure you are OK. It is VERY IMPORTANT to follow up for a repeat exam, especially if you have any symptoms that are not going away or are getting worse. We recommend that you RETURN TO THE EMERGENCY ROOM IN 8-12 HOURS to be rechecked. If you cannot, you may follow up with your primary care doctor or clinic. It is important that you follow all of the instructions below. RETURN TO THE EMERGENCY ROOM IMMEDIATELY IF: The pain does not go away or gets worse. You have a fever. You keep throwing up and cannot keep anything down. You pass bloody or black stools. You develop new symptoms. HOME CARE INSTRUCTIONS Come back to the ER (or see your doctor) in 8-12 hours. DO NOT take laxatives unless directed by your doctor. Avoid the use of alcohol Take pain medicine only as directed by your doctor. Only take [id number]-rad-wnluiab or prescription medicine as directed by your doctor. Try a clear liquid diet (broth, tea, jello, water) for the next 12-24 hours. Slowly move to a bland diet as tolerated. Do not eat greasy, fatty or spicy foods. Once you start getting better, go back to a normal, healthy diet, slowly over a few days. DISCHARGE PT INSTRUCTIONS: YOU HAVE BEEN EVALUATED FOR ABDOMINAL PAIN. HOWEVER, WE ARE UNABLE TO PROVIDE A DEFINITE CAUSE OF YOUR SYMPTOMS. EVEN THOUGH YOUR TESTS MAY HAVE BEEN NORMAL, YOU STILL COULD HAVE A SERIOUS CAUSE FOR YOUR ABDOMINAL PAIN, INCLUDING APPENDICITIS. THE BEST TEST TO DETERMINE IF YOU HAVE A SERIOUS CAUSE IS RE-EXAMINATION OVER TIME. WE USED TO ADMIT PATIENTS TO THE HOSPITAL FOR THIS, BUT CAN NOW ALLOW YOU TO GO HOME, & RETURN TO OUR ER THE NEXT DAY FOR RE- EXAMINATION. THUS, WE WOULD LIKE YOU TO RETURN TO OUR ER TOMORROW FOR YOUR RE-EVALUATION. (IF YOUR SYMPTOMS HAVE GONE AWAY, THEN YOU DO NOT NEED TO RETURN.) IF YOUR SYMPTOMS GET WORSE BETWEEN NOW & THEN, YOU SHOULD RETURN IMMEDIATELY & NOT WAIT UNTIL TOMORROW. SYMPTOMS TO LOOK FOR WORSENING PAIN, HIGH FEVER, PERSISTENT VOMITING not controlled with bgvh-eka-sccbuau medication, AND/OR OVERALL WORSENING OF YOUR CONDITION. Scripts Ondansetron Hcl (ZOFRAN) 8 Mg Tablet 4 MG PO TID PRN for nausea, #9 TAB Prov: SREE DAMON DO 01/04/20 Justification of Admission: Justification of Admission: Justification of Admission Dx: N/A SREE DAMON DO Jan 04, 2020 21:39
[2020-01-04] MEDS ORDERED: CONTRAST GIVEN. MC PRN (21:45)
[2020-01-04 21:52] LABS: BILIRUBIN,URINE NEG (NEG); CLARITY,URINE CLEAR; COLOR,URINE YELLOW; GLUCOSE,URINE NEG (NEG)
[2020-01-04 21:53] LABS: BACTERIA,URINE FEW /HPF (0-FEW); NITRITE,URINE NEG (NEG); SQUAMOUS EPITHELIAL CELL,UR MANY /LPF
[2020-01-04] MEDS ORDERED: IOHEXOL 300 MG/ML 75 ML VIAL. IV ONE (22:00)
[2020-01-04 22:05] LABS: BASO % 0 % (0-3); EOS # 0.2 x10^3/uL (0.0-0.7); EOS % 1 % (0-3); HEMATOCRIT 40.8 % (36.0-47.0); HEMOGLOBIN 13.5 g/dL (12.0-15.5); LYMPH # 4.3 x10^3/uL (1.0-4.8); LYMPH % 31 % (24-48); MEAN CORPUSCULAR HEMOGLOBIN 31 pg (25-35); MEAN CORPUSCULAR HGB CONC 33 g/dL (31-37); MEAN CORPUSCULAR VOLUME 93 fL (79-100); MONO # 0.6 x10^3/uL (0.0-1.1); MONO % 4 % (0-9); NEUT # 8.6 x10^3uL (1.8-7.7); NEUT % 63 % (31-73); PLATELET COUNT 241 x10^3/uL (140-400); RED BLOOD COUNT 4.39 x10^6/uL (3.50-5.40); WHITE BLOOD COUNT 13.6 x10^3/uL (4.0-11.0)
[2020-01-04 22:07] LABS: CALCIUM 9.3 mg/dL (8.5-10.1); CREATININE 0.7 mg/dL (0.6-1.0); GFR 97.6; POTASSIUM 4.3 mmol/L (3.5-5.1)
[2020-01-04 22:14] LABS: ALBUMIN 3.5 g/dL (3.4-5.0); ALBUMIN/GLOBULIN RATIO 0.9 (1.0-1.7); TOTAL BILIRUBIN 0.4 mg/dL (0.2-1.0); TOTAL PROTEIN 7.5 g/dL (6.4-8.2)
--- NOTE | 2020-01-04 22:16 | RAD ---
EXAM: CT ABDOMEN/PELVIS WITH CONTRAST. HISTORY: Right lower quadrant pain. TECHNIQUE: Computed tomography of the abdomen and pelvis was performed after the intravenous administration of iodinated contrast. One or more of the following individualized dose reduction techniques were utilized for this examination: 1. Automated exposure control. 2. Adjustment of the mA and/or kV according to patient size. 3. Use of iterative reconstruction technique. COMPARISON: None. FINDINGS: Lung windows through the visualized portions of the bases reveal mild atelectasis. Bone windows reveal no suspicious lesions. 2 calculi in the left renal lower pole measure up to 3 mm. The right kidney is unremarkable. The gallbladder is surgically absent. The liver, pancreas, adrenal glands and spleen are unremarkable. The appendix is not inflamed. There is no small bowel obstruction. The uterus and ovaries are unremarkable by CT. A small umbilical hernia contains only fat. There are 2 soft tissue density nodules within the subcutaneous fat on the right lower quadrant measuring up to 2.4 x 1.4 cm and 2.8 x 1.2 cm respectively. IMPRESSION: 1. 2 soft tissue density nodules within the subcutaneous fat of the right lower quadrant may represent scarring in a prior surgical scar. Other considerations may include endometriosis along the surgical scar. These foci are amenable to percutaneous ultrasound-guided biopsy if the diagnosis remains unclear. 2. Small fat-containing umbilical hernia. 3. Left renal calculi measure up to 3 mm. Electronically signed by: Aime Rowland MD (01/04/2020 10:13 PM) [facility]
--- NOTE | 2020-01-04 22:56 | RAD ---
US PELVIS W/TV History: Reason: RLQ pain / Spl. Instructions: / History: Comparison: CT January 04, 2020. Technique: Grayscale and color Doppler imaging of the pelvis was performed using transabdominal and transvaginal technique. Findings: The uterus measures 9.0 x 4.7 x 4.4 cm. Trace nonspecific fluid within the cervical canal.. The endometrial stripe measures 8.7 mm. Right ovary measures 2.7 x 2.1 x 1.8 cm. Normal blood flow to the right ovary. Left ovary not identified due to positioning and overlying structures. No adnexal masses are seen. IMPRESSION: 1. Trace nonspecific fluid within the cervical canal. 2. Left ovary not identified. Electronically signed by: Hitesh Sullivan DO (01/04/2020 10:54 PM) [facility]
[2020-01-04 23:30] VITALS: BP 137/62
[2020-01-04] MEDS ORDERED: MORPHINE SULFATE 4 MG/ML DISP.SYRIN. IV ONE (23:30)
[2020-01-04] MEDS ORDERED: ONDA8TAB9 PO (23:36)
== END 2020-01-05 | disposition home or self-care (01) ==
LOC: ER 21:05
DX: R10.31 Right lower quadrant pain (principal); R11.0 Nausea; E78.00 Pure hypercholesterolemia, unspecified; I11.9 Hypertensive heart disease without heart failure; Z90.49 Acquired absence of other specified parts of digestive tract; Z98.890 Other specified postprocedural states; Z98.51 Tubal ligation status; Z88.8 Allergy status to other drugs, medicaments and biological substances
CPT/HCPCS: 36415; 74177; 76830; 76856; 80053; 81001; 81025; 83690; 85025; 96374; 99285; J2270; Q9967

== ENCOUNTER 2020-01-05 08:09 | Emergency (ER) | payer OTHER ==
[~2020-01-05] VITALS: Ht 175.3 cm; Wt 140.7 kg
[~2020-01-05 08:09] MED LIST changes: +ONDA8TAB9 PO
[2020-01-05 08:47] LABS: BASO # 0.1 x10^3/uL (0.0-0.2); BASO % 1 % (0-3); EOS # 0.2 x10^3/uL (0.0-0.7); EOS % 2 % (0-3); HEMATOCRIT 39.5 % (36.0-47.0); HEMOGLOBIN 13.6 g/dL (12.0-15.5); LYMPH # 3.8 x10^3/uL (1.0-4.8); LYMPH % 33 % (24-48); MEAN CORPUSCULAR HEMOGLOBIN 31 pg (25-35); MEAN CORPUSCULAR HGB CONC 34 g/dL (31-37); MEAN CORPUSCULAR VOLUME 91 fL (79-100); MONO # 0.6 x10^3/uL (0.0-1.1); MONO % 5 % (0-9); NEUT # 6.9 x10^3uL (1.8-7.7); NEUT % 60 % (31-73); PLATELET COUNT 223 x10^3/uL (140-400); RED BLOOD COUNT 4.33 x10^6/uL (3.50-5.40); RED CELL DISTRIBUTION WIDTH 13.8 % (11.5-14.5); WHITE BLOOD COUNT 11.5 x10^3/uL (4.0-11.0)
--- NOTE | 2020-01-05 08:50 | PHYS DOC ---
Past History Past Medical History: Angina, Gallstones, High Cholesterol, Heart Disease, Hypertension, Other Additional Past Medical Histor: NONISCHEMIC CARDIOMYOPATHY Past Surgical History: Cholecystectomy, , Tubal ligation Smoking: Non-smoker Alcohol Use: None Drug Use: None Adult General Chief Complaint Chief Complaint: CHEST PAIN HPI HPI Patient is a 29-year-old female who presents to the emergency room who presents complaining of sudden onset substernal chest pain with associated shortness of breath. She states this is atypical for her. She does not typically get chest pain. She follow with cardiology for nonischemic cardiomyopathy. Last echo was a few weeks ago and she had an EF of 36% at that time. Pain has been constant and sharp in nature. Worse with breathing and movement. Denies any trauma or lifting. Review of Systems Review of Systems General: Denies fever, chills, sweats, fatigue Eyes: Denies drainage, blurred vision, eye redness HENT: Denies rhinorrhea, sore throat, earache Respiratory: Denies cough, wheezing. Reports shortness of breath Cardiac: Denies edema, palpitations.reports chest pain GI: Denies abdominal pain, Nausea, vomiting MSK: Denies back pain, neck pain Skin: Denies rash, jaundice Neuro: Denies headache, dizziness Psychiatric: Denies SI/HI Current Medications Current Medications Current Medications Medications (Trade) Dose Ordered Sig/Amy Start Time Stop Time Status Last Admin Dose Admin Fentanyl Citrate (Fentanyl 2ml Vial) 50 mcg 1X ONCE 01/05/20 08:45 01/05/20 08:46 Allergies Allergies Allergies Coded Allergies Type Severity Reaction Last Updated Verified bupropion Allergy Unknown seizure 08/04/13 Yes Physical Exam Physical Exam General: Awake, alert, mild distress, crying. Well Nourished, well hydrated. Cooperative HEENT: Atraumatic, EOMI, PERRL, airway patent, moist oral mucosa Neck: Supple, trachea midline Respiratory: CTA bilaterally, normal effort, no wheezing/crackles CV: RRR, no murmur, cap refill <2 GI: Soft, nondistended, nontender, no masses MSK: No obvious deformities Skin: Warm, dry, intact Neuro: A&O x3, speech NL, sensory and motor grossly intact, no focal deficits Psych: Normal affect, normal mood, not suicidal or homicidal Current Patient Data Vital Signs Vital Signs Date Time Temp Pulse Resp B/P (MAP) Pulse Ox O2 Delivery O2 Flow Rate FiO2 01/05/20 08:11 97.9 87 24 109/48 (68) 98 01/05/20 08:09 Room Air EKG EKG [] Radiology/Procedures Radiology/Procedures [] Course & Med Decision Making Course & Med Decision Making Pertinent Labs and Imaging studies reviewed. (See chart for details) Patient is a 29 year-old female who presents to the Emergency Room complaining of chest pain associated shortness of breath. History is significant for nonisc hemic cardiomyopathy. At this time, given patient's risk factors and story there is concern for possible cardiac pathology. EKG was ordered and shows chronic changes. At this time there is no signs of STEMI, pericarditis, or unstable arrthymia on EKG. Patient has received aspirin today. CBC, BMP, troponin, CXR were ordered to evaluate for causes of chest pain including ACS, anemia, electrolyte abnormalities that can lead to arrhythmias, PTX, pneumonia, pneumomediastinum. Patient does not have any abdominal tenderness that would suggest pancreaititis or cholecystitis and does not need an abdominal work up at this time. Patient's HEART score is 4 placing the patient at moderate risk. Discussed the case with Dr. Tarango who will admit her at [facility] Drag Disclaimer Dragon Disclaimer This electronic medical record was generated, in whole or in part, using a voice recognition dictation system. Departure Departure: Impression: Primary Impression: Chest pain Disposition: XFER SHT-TRM HOSP Condition: IMPROVED Referrals: TEREZA ORTEGA (PCP) Justification of Admission: Justification of Admission: Justification of Admission Dx: Yes MAYANK GARNER MD Jan 05, 2020 08:49
[2020-01-05 08:53] LABS: CALCIUM 9.5 mg/dL (8.5-10.1); CREATININE 0.5 mg/dL (0.6-1.0); GFR 143.9; POTASSIUM 3.8 mmol/L (3.5-5.1)
--- NOTE | 2020-01-05 09:24 | RAD ---
EXAMINATION: CHEST PA LATERAL CLINICAL HISTORY: Chest pain EXAM DATE/TIME: 01/05/2020 8:20 AM COMPARISON: 05/13/2019 FINDINGS: Lines, tubes, and devices: None. Cardiomediastinal silhouette: Heart size at upper limits of normal, similar to prior study. Lungs and pleura: No evidence of focal airspace consolidation or pleural effusion. Pulmonary vasculature unremarkable. Bones and soft tissues: No acute osseous abnormality. IMPRESSION: No evidence of acute cardiopulmonary abnormality or significant interval change. Electronically signed by: Sukhwinder Ho DO (01/05/2020 9:21 AM) [id number]
[2020-01-05 11:37] VITALS: BP 120/58
--- NOTE | 2020-01-07 07:00 | EKG ---
[address] [address] Test Date: 2020-01-05 Test Time: 08:15:08 Pat Name: SANGITA CAREY Department: Room: Gender: F Director Of Conservation: : 1990 Requested By: MAYANK GARNER Order Number: [id number] Reading MD: Measurements Intervals [place] Rate: 74 P: 43 NV: 166 QRS: -39 QRSD: 132 T: 55 QT: 404 QTc: 449 Interpretive Statements SINUS RHYTHM ABNORMAL LEFT AXIS DEVIATION NON SPECIFIC INTRAVENTRICULAR BLOCK QRS(T) CONTOUR ABNORMALITY CONSISTENT WITH ANTERIOR INFARCT PROBABLY OLD CONSISTENT WITH INFERIOR INFARCT PROBABLY OLD ABNORMAL ECG RI6.02 No previous ECG available for comparison
== END 2020-01-05 11:55 | disposition short-term general hospital (02) ==
LOC: ER 08:09
DX: R07.2 Precordial pain (principal); R06.02 Shortness of breath; E78.00 Pure hypercholesterolemia, unspecified; I11.9 Hypertensive heart disease without heart failure; I42.8 Other cardiomyopathies; Z88.8 Allergy status to other drugs, medicaments and biological substances
CPT/HCPCS: 36415; 71046; 80048; 83880; 84484; 85025; 96374; 96376; 99285; J3010; 93005

== ENCOUNTER 2021-01-11 19:47 | Emergency (ER) | payer OTHER ==
[~2021-01-11] VITALS: Ht 175.3 cm; Wt 78.9 kg
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
[2021-01-11] MEDS: oxyCODONE/APAP 5/325 1 TAB TABLET PO ONE (20:29)
--- NOTE | 2021-01-11 20:32 | RAD ---
Exam: CT head INDICATION: Fall, right parietal swelling TECHNIQUE: Sequential axial images through the head were obtained without the administration of IV co ntrast. Exposure: One or more of the following in the visualized dose reduction techniques were utilized for this examination: 1. Automated exposure control 2. Adjustment of the MA and/or KV according to patient size 3. Use of iterative of reconstructive technique Comparisons: None FINDINGS: No focal parenchymal lesion or hemorrhage is identified. There is no midline shift or sulcal effaceme nt. No acute vascular territory infarction is identified. Domingo-white distinction is preserved. The ventricular system is within normal limits without compression hydrocephalus. The basal cisterns are well maintained. Extra soft tissue scalp contusion/hematoma overlying the right superior parietal region. The visualiz ed portions of the paranasal sinuses and mastoid air cells are well-pneumatized. No acute fractures. IMPRESSION: Extra cranial soft tissue scalp contusion/hematoma overlying the right parietal region without underl memo osseous or intracranial abnormality. Electronically signed by: Olga Hernández MD (01/11/2021 8:29 PM) [facility]
[2021-01-11 20:35] VITALS: BP 116/73
== END 2021-01-11 20:35 | disposition home or self-care (01) ==
LOC: ER 19:47
DX: S00.03XA Contusion of scalp, initial encounter (principal); E78.00 Pure hypercholesterolemia, unspecified; I11.9 Hypertensive heart disease without heart failure; Z88.8 Allergy status to other drugs, medicaments and biological substances; W18.39XA Other fall on same level, initial encounter; Y93.89 Activity, other specified; Y92.89 Other specified places as the place of occurrence of the external cause; Y99.8 Other external cause status
CPT/HCPCS: 70450; 99284-25

== ENCOUNTER 2021-01-14 14:14 | Emergency (ER) | payer OTHER ==
[~2021-01-14] VITALS: Ht 175.3 cm; Wt 78.9 kg
--- NOTE | 2021-01-14 14:51 | PHYS DOC ---
Past History Past Medical History: Angina, Gallstones, High Cholesterol, Heart Disease, Hypertension, Other Additional Past Medical Histor: CARDIOMYOPATHY Past Surgical History: Cholecystectomy, , Tubal ligation, Other Additional Past Surgical Histo: GASTRIC SLEEVE Smoking: Non-smoker Alcohol Use: Occasionally Drug Use: None General Adult EDM: Chief Complaint: MULTIPLE COMPLAINTS HPI: HPI: 30-year-old female presents with dizziness and concern for dehydration. She tells me that she has been feeling lightheaded and having "crossing over" vision. This is made her feel unstable. Her has had to catch her from falling a couple times. Patient mitts to decreased oral intake lately. She had weight reduction surgery about 6 months ago. Patient also states having some intermittent sharp chest pains last less than a minute each. Those to start this morning. Patient has a history of nonischemic cardiomyopathy. She denies fever or chills. Her ears have a feeling of fullness bilaterally. Review of Systems: Review of Systems: Constitutional: Denies fever or chills Eyes: Denies change in visual acuity HENT: Denies nasal congestion or sore throat Respiratory: Denies cough or shortness of breath Cardiovascular: Chest pain GI: Denies abdominal pain, nausea, vomiting, bloody stools or diarrhea : Denies dysuria Musculoskeletal: Denies back pain or joint pain Integument: Denies rash Neurologic: Dizziness. Denies headache, focal weakness or sensory changes Endocrine: Denies polyuria or polydipsia Lymphatic: Denies swollen glands Psychiatric: Denies depression or anxiety Allergies: Allergies: Allergies Coded Allergies Type Severity Reaction Last Updated Verified bupropion Allergy Unknown seizure 08/04/13 Yes Physical Exam: PE: Constitutional: Well developed, well nourished, no acute distress, non-toxic appearance. [] HENT: Normocephalic, atraumatic, bilateral external ears normal, oropharynx moist, no oral exudates, nose normal. [] Eyes: PERRLA, EOMI, conjunctiva normal, no discharge. [] Neck: Normal range of motion, no tenderness, supple, no stridor. [] Cardiovascular:Heart rate regular rhythm, no murmur [] Lungs & Thorax: Bilateral breath sounds clear to auscultation [] Abdomen: Bowel sounds normal, soft, no tenderness, no masses, no pulsatile masses. [] Skin: Warm, dry, no erythema, no rash. [] Back: No tenderness, no CVA tenderness. [] Extremities: No tenderness, no cyanosis, no clubbing, ROM intact, no edema. [] Neurologic: Alert and oriented X 3, normal motor function, normal sensory function, no focal deficits noted. [] Psychologic: Affect normal, judgement normal, mood normal. [] EKG: EKG: Sinus rhythm, rate 61, normal axis, Q waves V1 through V4, no ST elevation or depression. [] Radiology/Procedures: Radiology/Procedures: [] Heart Score: C/O Chest Pain: Yes HEART Score for Chest Pain: HEART Score for Chest Pain Response (Comments) Value History Slighlty/Non-Suspicious 0 ECG Nonspecific Repolarizatio 1 Age < 45 0 Risk Factors 1 or 2 Risk Factors 1 Total 2 Risk Factors: Risk Factors: DM, Current or recent (<one month) smoker, HTN, HLP, family history of CAD, obesity. Risk Scores: Score 0 - 3: 2.5% MACE over next 6 weeks - Discharge Home Score 4 - 6: 20.3% MACE over next 6 weeks - Admit for Clinical Observation Score 7 - 10: 72.7% MACE over next 6 weeks - Early Invasive Strategies Course & Med Decision Making: Course & Med Decision Making Pertinent Labs and Imaging studies reviewed. (See chart for details) The patient EKG does show Q waves, but she has a cardiac history which could explain this. I do not see any acute findings. Her labs are unremarkable. Her troponin is negative. Her chest x-ray is negative for acute findings. The patient was given a banana bag fluids for her dehydration. She does not meet admission criteria. She is stable for discharge at this time. [] Dragon Disclaimer: Dragon Disclaimer: This electronic medical record was generated, in whole or in part, using a voice recognition dictation system. Departure Departure: Impression: Primary Impression: Atypical chest pain Additional Impression: Dizziness Disposition: 01 HOME / SELF CARE / HOMELESS Condition: IMPROVED Referrals: TEREZA ORTEGA (PCP) Patient Instructions: Dizziness, [id number] SHIRLEY NAVARRO DO Jan 14, 2021 14:51
[2021-01-14] MEDS ORDERED: ONDANSETRON PF 4 MG/2 ML VIAL. IVP ONE (15:00)
--- NOTE | 2021-01-14 15:07 | EKG ---
[address] [address] Test Date: 2021-01-14 Test Time: 14:22:43 Pat Name: SANGITA CAREY Department: Room: Gender: F Counselor Camp: : 1990 Requested By: SHIRLEY NAVARRO Order Number: [id number] Reading MD: Measurements Intervals [place] Rate: 61 P: 19 NC: 142 QRS: 2 QRSD: 96 T: -26 QT: 410 QTc: 418 Interpretive Statements SINUS RHYTHM QRS(T) CONTOUR ABNORMALITY CONSISTENT WITH ANTERIOR INFARCT AGE UNDETERMINED CONSISTENT WITH INFERIOR INFARCT AGE UNDETERMINED ABNORMAL ECG RI6.02 No previous ECG available for comparison
[2021-01-14 15:30] LABS: BASO # 0.1 x10^3/uL (0.0-0.2); BASO % 1 % (0-3); EOS # 0.1 x10^3/uL (0.0-0.7); EOS % 1 % (0-3); HEMATOCRIT 43.7 % (36.0-47.0); HEMOGLOBIN 14.3 g/dL (12.0-15.5); LYMPH # 3.8 x10^3/uL (1.0-4.8); LYMPH % 45 % (24-48); MEAN CORPUSCULAR HEMOGLOBIN 30 pg (25-35); MEAN CORPUSCULAR HGB CONC 33 g/dL (31-37); MEAN CORPUSCULAR VOLUME 92 fL (79-100); MONO # 0.6 x10^3/uL (0.0-1.1); MONO % 7 % (0-9); NEUT # 3.8 x10^3uL (1.8-7.7); NEUT % 46 % (31-73); PLATELET COUNT 223 x10^3/uL (140-400); RED BLOOD COUNT 4.77 x10^6/uL (3.50-5.40); RED CELL DISTRIBUTION WIDTH 16.2 % (11.5-14.5); WHITE BLOOD COUNT 8.4 x10^3/uL (4.0-11.0)
[2021-01-14] MEDS ORDERED: MVI, ADULT NO.4 WITH VIT K 10 ML, FOLIC ACID INJ 1 MG, THIAMINE INJ 100 MG in IV NORMAL... IV ONE (15:30)
[2021-01-14] MEDS ORDERED: KETOROLAC 30 MG/ML VIAL. IVP ONE (15:30)
[2021-01-14 15:36] LABS: CALCIUM 9.2 mg/dL (8.5-10.1); CREATININE 0.4 mg/dL (0.6-1.0); POTASSIUM 4.3 mmol/L (3.5-5.1)
[2021-01-14 15:41] LABS: ALBUMIN 3.4 g/dL (3.4-5.0); TOTAL BILIRUBIN 0.4 mg/dL (0.2-1.0); TOTAL PROTEIN 6.7 g/dL (6.4-8.2)
[2021-01-14 15:50] VITALS: BP 125/73
--- NOTE | 2021-01-14 16:16 | RAD ---
Exam: Chest one view INDICATION: Chest pain TECHNIQUE: Frontal view of the chest Comparisons: 01/05/2020 FINDINGS: The cardiomediastinal silhouette and pulmonary vessels are within normal limits. The lung and pleural spaces are clear. IMPRESSION: No acute cardiopulmonary process. Electronically signed by: Olga Hernández MD (01/14/2021 4:14 PM) [facility]EL
== END 2021-01-14 16:15 | disposition home or self-care (01) ==
LOC: ER 14:14
DX: R07.89 Other chest pain (principal); R42 Dizziness and giddiness; E78.5 Hyperlipidemia, unspecified; I10 Essential (primary) hypertension; Z90.49 Acquired absence of other specified parts of digestive tract; Z98.51 Tubal ligation status
CPT/HCPCS: 36415; 71045; 80053; 84484; 85025; 93005; 96365; 96375; 99285; J1885; J2405; J7030

== ENCOUNTER 2021-01-24 07:31 | Emergency (ER) | payer OTHER ==
[~2021-01-24] VITALS: Ht 175.3 cm; Wt 79.3 kg
[2021-01-24] MEDS ORDERED: ONDANSETRON PF 4 MG/2 ML VIAL. IVP ONE (08:15)
[2021-01-24] MEDS ORDERED: KETOROLAC 15 MG/ML VIAL. IVP ONE (08:15)
[2021-01-24] MEDS ORDERED: IV NORMAL SALINE 1,000ML 1,000 ML IV ONE (08:15)
[2021-01-24] MEDS ORDERED: IOHEXOL 300 MG/ML 75 ML VIAL. IV ONE (08:15)
[2021-01-24] MEDS ORDERED: FAMOTIDINE 20 MG/2 ML VIAL IVP ONE (08:15)
--- NOTE | 2021-01-24 08:45 | RAD ---
CT of the abdomen and pelvis with contrast 01/24/2021 8:38 AM Indication: Reason: RLQ abdominal pain, nausea, hx cholecystectomy, gastric sleeve Comparison study: January 04, 2020 Technique: Multidetector CT imaging of the abdomen and pelvis was performed following the administrat ion of IV contrast. Findings: The partially visualized lung bases demonstrate no acute abnormality. The liver, spleen, bilateral adrenal glands, and pancreas, are grossly unremarkable. There is a 3 m m nonobstructing stone in the inferior pole of the left kidney, unchanged. The kidneys are otherwise unremarkable. The bladder is predominantly decompressed limiting evaluation, though some degree of bl adder wall thickening may be present. Correlate with clinical evidence of cystitis. The gallbladder i s surgically absent. Postoperative changes following sleeve gastrectomy noted. There is no bowel obst ruction. No evidence of acute inflammatory change involving visualized bowel is identified. Appendix is visualized and unremarkable in appearance. No free fluid or free air is seen in the abdomen or pe lvis. No acute osseous changes are identified. Subcutaneous hyperdensities are noted in the right lo wer quadrant abdominal wall which could represent the sequela subcutaneous injections and medications . Correlate clinically.. Impression: 1. Possible bladder wall thickening. Correlate with clinical evidence of cystitis 2. Small hyperdensities within the subcutaneous tissues of the right lower quadrant abdominal wall. C orrelate with history of subcutaneously administered medication. 3.No other acute intra-abdominal abnormality is identified CT DOSING PQRS STATEMENT: One or more of the following individualized dose reduction techniques were utilized for this examinat ion: 1. Automated exposure control 2. Adjustment of the mA and/or kV according to patient size 3. Use of iterative reconstruction technique Electronically signed by: Miguel Stacy MD (01/24/2021 8:42 AM) [id number]
[2021-01-24 08:47] LABS: BASO % 0 % (0-3); EOS # 0.1 x10^3/uL (0.0-0.7); EOS % 1 % (0-3); HEMATOCRIT 43.6 % (36.0-47.0); HEMOGLOBIN 14.2 g/dL (12.0-15.5); LYMPH # 3.6 x10^3/uL (1.0-4.8); LYMPH % 37 % (24-48); MEAN CORPUSCULAR HEMOGLOBIN 30 pg (25-35); MEAN CORPUSCULAR HGB CONC 33 g/dL (31-37); MEAN CORPUSCULAR VOLUME 91 fL (79-100); MONO # 0.5 x10^3/uL (0.0-1.1); MONO % 5 % (0-9); NEUT # 5.4 x10^3uL (1.8-7.7); NEUT % 56 % (31-73); PLATELET COUNT 260 x10^3/uL (140-400); RED BLOOD COUNT 4.81 x10^6/uL (3.50-5.40); RED CELL DISTRIBUTION WIDTH 16.3 % (11.5-14.5); WHITE BLOOD COUNT 9.7 x10^3/uL (4.0-11.0)
[2021-01-24 08:55] LABS: CALCIUM 9.8 mg/dL (8.5-10.1); CREATININE 0.5 mg/dL (0.6-1.0); POTASSIUM 3.7 mmol/L (3.5-5.1)
[2021-01-24 09:03] LABS: ALBUMIN 3.7 g/dL (3.4-5.0); MAGNESIUM 1.7 mg/dL (1.8-2.4); TOTAL BILIRUBIN 0.7 mg/dL (0.2-1.0); TOTAL PROTEIN 7.5 g/dL (6.4-8.2)
[2021-01-24 09:17] LABS: AMORPHOUS SEDIMENT,UR PRESENT /HPF; BACTERIA,URINE MANY /HPF (0-FEW); BILIRUBIN,URINE NEG (NEG); CLARITY,URINE CLOUDY; COLOR,URINE YELLOW; GLUCOSE,URINE NEG (NEG); NITRITE,URINE POS (NEG); RBC,URINE OCC /HPF (0-2); SQUAMOUS EPITHELIAL CELL,UR OCC /LPF
[2021-01-24 09:18] LABS: U PREG PATIENT NEGATIVE (NEG)
--- NOTE | 2021-01-24 09:27 | PHYS DOC ---
Past History Past Medical History: Angina, Gallstones, High Cholesterol, Heart Disease, Hypertension, Other Additional Past Medical Histor: CARDIOMYOPATHY Past Surgical History: Cholecystectomy, , Tubal ligation, Other Additional Past Surgical Histo: GASTRIC SLEEVE Smoking: Non-smoker Alcohol Use: Occasionally Drug Use: Marijuana General Adult EDM: Chief Complaint: ABDOMINAL PAIN HPI: HPI: 30-year-old female presents with report of right lower quadrant abdominal discomfort that has been ongoing for the past 2 hours. Patient does report intermittent sharp pain along with cramping. Denies . Reports last menstrual period was 2 weeks ago. Reports some associated nausea. Denies fever or chills. Denies trauma. Denies known exposure to COVID-19. Patient reports history of Moderna vaccination x2. Review of Systems: Review of Systems: Constitutional: Denies fever or chills Eyes: Denies redness or eye pain HENT: Denies nasal congestion or sore throat Respiratory: Denies cough or shortness of breath Cardiovascular: Denies chest pain or palpitations GI: Reports abdominal pain and nausea : Denies dysuria or hematuria Musculoskeletal: Denies back pain or joint pain Integument: Denies rash or skin lesions Neurologic: Denies headache, focal weakness or sensory changes Complete systems were reviewed and found to be within normal limits, except as documented in this note. Current Medications: Current Meds: Current Medications Medications (Trade) Dose Ordered Sig/Amy Start Time Stop Time Status Last Admin Dose Admin Famotidine (Pepcid Vial) 20 mg 1X ONCE 01/24/21 08:15 01/24/21 08:16 DC 01/24/21 08:34 20 MG Iohexol (Omnipaque 300 Mg/ml) 75 ml 1X ONCE 01/24/21 08:15 01/24/21 08:17 DC 01/24/21 08:22 75 ML Ketorolac Tromethamine (Toradol 15mg Vial) 15 mg 1X ONCE 01/24/21 08:15 01/24/21 08:16 DC 01/24/21 08:33 15 MG Ondansetron HCl (Zofran) 4 mg 1X ONCE 01/24/21 08:15 01/24/21 08:16 DC 01/24/21 08:33 4 MG Sodium Chloride 1,000 ml @ 1,000 mls/hr 1X ONCE 10/5/21 08:15 01/24/21 09:14 DC 01/24/21 08:32 1,000 MLS/HR Allergies: Allergies: Allergies Coded Allergies Type Severity Reaction Last Updated Verified bupropion Allergy Unknown seizure 01/24/21 Yes Physical Exam: PE: Constitutional: Well developed, well nourished, uncomfortable, non-toxic appearance HENT: Normocephalic, atraumatic Eyes: Conjunctiva normal, no discharge Neck: Normal range of motion, supple Lungs & Thorax: No respiratory distress, equal chest rise and fall Abdomen: Soft, RLQ tenderness, no guarding/rebound tenderness/distention Skin: Warm, dry, no erythema, no rash Back: No tenderness, no CVA tenderness Extremities: No tenderness, ROM intact, no edema Neurologic: Alert and oriented X 3, no focal deficits noted Psychologic: Affect normal, judgment normal Current Patient Data: Labs: Laboratory Tests Test 01/24/21 07:53 White Blood Count 9.7 x10^3/uL (4.0-11.0) Red Blood Count 4.81 x10^6/uL (3.50-5.40) Hemoglobin 14.2 g/dL (12.0-15.5) Hematocrit 43.6 % (36.0-47.0) Mean Corpuscular Volume 91 fL (79-100) Mean Corpuscular Hemoglobin 30 pg (25-35) Mean Corpuscular Hemoglobin Concent 33 g/dL (31-37) Red Cell Distribution Width 16.3 % (11.5-14.5) H Platelet Count 260 x10^3/uL (140-400) Neutrophils (%) (Auto) 56 % (31-73) Lymphocytes (%) (Auto) 37 % (24-48) Monocytes (%) (Auto) 5 % (0-9) Eosinophils (%) (Auto) 1 % (0-3) Basophils (%) (Auto) 0 % (0-3) Neutrophils # (Auto) 5.4 x10^3uL (1.8-7.7) Lymphocytes # (Auto) 3.6 x10^3/uL (1.0-4.8) Monocytes # (Auto) 0.5 x10^3/uL (0.0-1.1) Eosinophils # (Auto) 0.1 x10^3/uL (0.0-0.7) Basophils # (Auto) 0.0 x10^3/uL (0.0-0.2) Sodium Level 137 mmol/L (136-145) Potassium Level 3.7 mmol/L (3.5-5.1) Chloride Level 101 mmol/L (98-107) Carbon Dioxide Level 27 mmol/L (21-32) Anion Gap 9 (6-14) Blood Urea Nitrogen 7 mg/dL (7-20) Creatinine 0.5 mg/dL (0.6-1.0) L Estimated GFR (Cockcroft-Gault) 143.0 BUN/Creatinine Ratio 14 (6-20) Glucose Level 85 mg/dL (70-99) Calcium Level 9.8 mg/dL (8.5-10.1) Magnesium Level 1.7 mg/dL (1.8-2.4) L Total Bilirubin 0.7 mg/dL (0.2-1.0) Aspartate Amino Transferase (AST) 10 U/L (15-37) L Alanine Aminotransferase (ALT) 15 U/L (14-59) Alkaline Phosphatase 70 U/L (46-116) Total Protein 7.5 g/dL (6.4-8.2) Albumin 3.7 g/dL (3.4-5.0) Albumin/Globulin Ratio 1.0 (1.0-1.7) Lipase 79 U/L (73-393) Vital Signs: Vital Signs Date Time Temp Pulse Resp B/P (MAP) Pulse Ox O2 Delivery O2 Flow Rate FiO2 01/24/21 07:39 97.7 64 18 122/80 (94) 100 Room Air EKG: EKG: [] Radiology/Procedures: Radiology/Procedures: PROCEDURE: CT ABD PELV W/ORAL&IV CONTRAST CT of the abdomen and pelvis with contrast 01/24/2021 8:38 AM Indication: Reason: RLQ abdominal pain, nausea, hx cholecystectomy, gastric sleeve Comparison study: January 04, 2020 Technique: Multidetector CT imaging of the abdomen and pelvis was performed following the administration of IV contrast. Findings: The partially visualized lung bases demonstrate no acute abnormality. The liver, spleen, bilateral adrenal glands, and pancreas, are grossly un remarkable. There is a 3 mm nonobstructing stone in the inferior pole of the left kidney, unchanged. The kidneys are otherwise unremarkable. The bladder is predominantly decompressed limiting evaluation, though some degree of bladder wall thickening may be present. Correlate with clinical evidence of cystitis. The gallbladder is surgically absent. Postoperative changes following sleeve gastrectomy noted. There is no bowel obstruction. No evidence of acute inflammatory change involving visualized bowel is identified. Appendix is visualized and unremarkable in appearance. No free fluid or free air is seen in the abdomen or pelvis. No acute osseous changes are identified. Subcutaneous hyperdensities are noted in the right lower quadrant abdominal wall which could represent the sequela subcutaneous injections and medications. Correlate clinically.. Impression: 1. Possible bladder wall thickening. Correlate with clinical evidence of cystitis 2. Small hyperdensities within the subcutaneous tissues of the right lower quadrant abdominal wall. Correlate with history of subcutaneously administered medication. 3.No other acute intra-abdominal abnormality is identified CT DOSING PQRS STATEMENT: One or more of the following individualized dose reduction techniques were utilized for this examination: 1. Automated exposure control 2. Adjustment of the mA and/or kV according to patient size 3. Use of iterative reconstruction technique Electronically signed by: Miguel Stacy MD (01/24/2021 8:42 AM) [id number] Heart Score: C/O Chest Pain: N/A Course & Med Decision Making: Course & Med Decision Making Pertinent Labs and Imaging studies reviewed. (See chart for details) Patient presents with right lower quadrant abdominal discomfort with associated nausea x2 hours. Labs obtained and posted to chart. UA with signs of infe ction. Empiric antibiotic initiated. IV fluid hydration given. Pain addressed. CT abdomen/pelvis with signs of cystitis without other surgical abnormality noted. Incidental subcutaneous edema noted on right lower quadrant. Patient was reevaluated without any cutaneous changes noted on physical exam. Patient denies use of any recent injection into this area. Unknown significance. Patient stable for discharge with outpatient follow-up with PCP. Discussed findings and plan with patient, who acknowledges understanding and agreement. Robert Disclaimer: Robert Disclaimer: This electronic medical record was generated, in whole or in part, using a voice recognition dictation system. Departure Departure: Impression: Primary Impression: Abdominal pain Qualified Codes: R10.31 - Right lower quadrant pain Additional Impression: Urinary tract infection Qualified Codes: N30.01 - Acute cystitis with hematuria Disposition: HOME / SELF CARE / HOMELESS Condition: STABLE Referrals: TEREZA ORTEGA (PCP) VANIA MARTÍNEZ MD Patient Instructions: Abdominal Pain (Nonspecific), Urinary Tract Infection, [id number] Additional Instructions: Increase fluid hydration. Please take antibiotic to completion. Scripts Cephalexin (KEFLEX) 500 Mg Capsule 1 CAP PO TID for UTI for 7 Days, #21 CAP Prov: PIETRO NEVAREZ DO 01/24/21 Hyoscyamine Sulfate (LEVSIN-SL) 0.125 Mg Tab.subl 0.125 MG SL Q4-6HRS PRN for ABDOMINAL CRAMPS, #14 TAB Prov: PIETRO NEVAREZ DO 01/24/21 Ondansetron (ONDANSETRON ODT) 4 Mg Tab.rapdis 1 TAB PO PRN Q6-8HRS PRN for NAUSEA, #16 TAB Prov: PIETRO NEVAREZ DO 01/24/21 PIETRO NEVAREZ DO Jan 24, 2021 09:27
[2021-01-24] MEDS ORDERED: HYOS0.1265 SL (09:43)
[2021-01-24] MEDS ORDERED: ONDA4TAB12 PO (09:43)
[2021-01-24] MEDS ORDERED: CEPH500C PO (09:44)
[2021-01-24 10:00] VITALS: BP 112/59
== END 2021-01-24 10:00 | disposition home or self-care (01) ==
LOC: ER 07:31
DX: N30.01 Acute cystitis with hematuria (principal); E78.00 Pure hypercholesterolemia, unspecified; I11.9 Hypertensive heart disease without heart failure; Z90.49 Acquired absence of other specified parts of digestive tract; Z98.890 Other specified postprocedural states; Z98.51 Tubal ligation status; Z88.8 Allergy status to other drugs, medicaments and biological substances
CPT/HCPCS: 36415; 74177; 80053; 81001; 81025; 83690; 83735; 85025; 87086; 96361; 96374; 96375; 99285; J1885; J2405; J3490; J7030; Q9967

== ENCOUNTER → 2021-02-24 | Outpatient (CLI) | payer OTHER ==
[~2021-02-24] MED LIST changes: +CEPH500C PO; +HYOS0.1265 SL; +ONDA4TAB12 PO
--- NOTE | 2021-02-24 14:06 | RAD ---
XR THORACIC SPINE 3VIEWS History: URI, back pain. Comparison: Chest x-ray 02/24/2021, 01/05/20 Technique: 3 views of the thoracic spine. Findings: There are 12 rib bearing thoracic vertebral segments. There is no evidence for fracture. Alignment is normal. No destructive osseous lesions are seen. No significant facet disease. The disc heights are preserved. There are mild marginal endplate osteophytes. Surgical clips in the left upper quadrant. Visualized lungs are clear. IMPRESSION: 1. No significant thoracic spine pathology. Electronically signed by: Vinicius aRy MD (02/24/2021 2:04 PM) [id number]
--- NOTE | 2021-02-24 14:10 | RAD ---
XR CHEST 2V CLINICAL INDICATIONS: Upper respiratory infection, BACK PAIN / Spl. Instructions: / History: COMPARISON: January 14, 2021 Findings: No acute lung infiltrate or pleural effusion or pulmonary edema or lung mass or pneumothora x is seen. The heart size, pulmonary vasculature, mediastinum and both sukhi are unremarkable. The os seous structures appear intact. IMPRESSION: No acute radiographic abnormality is seen. Electronically signed by: Wei Cullen MD (02/24/2021 2:08 PM) [id number]
== END ==
LOC: PMG 13:27
PROVIDERS: ATTEND Nurse Practitioner Family
DX: J06.9 Acute upper respiratory infection, unspecified (principal); M54.6 Pain in thoracic spine; M25.78 Osteophyte, vertebrae
CPT/HCPCS: 71046; 72072

== ENCOUNTER 2021-03-04 03:08 | Emergency (ER) | payer OTHER ==
[~2021-03-04] VITALS: Ht 175.3 cm; Wt 76.3 kg
--- NOTE | 2021-03-04 03:14 | PHYS DOC ---
Past History Past Medical History: Angina, Gallstones, High Cholesterol, Heart Disease, Hypertension, Other Additional Past Medical Histor: CARDIOMYOPATHY Past Surgical History: Cholecystectomy, , Tubal ligation, Other Additional Past Surgical Histo: GASTRIC SLEEVE Smoking: Non-smoker Alcohol Use: Occasionally Drug Use: Marijuana Adult General Chief Complaint Chief Complaint: COUGH HPI HPI Patient is a 30-year-old female presents with a chief complaint of nasal congestion and productive cough for the last couple of days. 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 Denies any headaches, fevers, pain or trouble swallowing, chest pain, shortness of breath, abdominal pain, nausea, vomiting, diarrhea. States she is eating and drinking normally. States he is making urine and stool normally with no blood in either. Review of Systems Review of Systems Review of systems otherwise unremarkable except noted in HPI Allergies Allergies Allergies Coded Allergies Type Severity Reaction Last Updated Verified bupropion Allergy Unknown seizure 01/24/21 Yes Physical Exam Physical Exam Constitutional: Well developed, well nourished, no acute distress, non-toxic appearance. [] HENT: Normocephalic, atraumatic, bilateral external ears normal, oropharynx moist, no oral exudates, nose normal. [] Eyes: PERRLA, EOMI, conjunctiva normal, no discharge. [] Neck: Normal range of motion, no tenderness, supple, no stridor. [] Cardiovascular:Heart rate regular rhythm, no murmur [] Lungs & Thorax: No tachypnea or hypoxia, no respiratory distress. Very mild global scattered rhonchi Skin: Warm, dry, no erythema, no rash. [] Neurologic: Alert and oriented X 3, no focal deficits noted. [] Psychologic: Affect normal, judgement normal, mood normal. [] EKG EKG [] Radiology/Procedures Radiology/Procedures [] Heart Score C/O Chest Pain: No Risk Factors: Risk Factors: DM, Current or recent (<one month) smoker, HTN, HLP, family history of CAD, obesity. Risk Scores: Risk Factors: DM, Current or recent (<one month) smoker, HTN, HLP, family history of CAD, obesity. Course & Med Decision Making Course & Med Decision Making Patient is a 30-year-old female presents with a chief complaint of productive cough Vital signs not concerning. Physical exam noted above. Chest x-ray not concerning. Given cough syrup, Tylenol and diphenhydramine. Discussed symptomatic treatment at home. Advised to follow-up with primary care physician on Saturday. Gave return precautions to the ED. Patient grateful, verbalized understanding and agreed with plan of discharge. [] Dragon Disclaimer Dragon Disclaimer This electronic medical record was generated, in whole or in part, using a voice recognition dictation system. Departure Departure: Impression: Primary Impression: Cough Disposition: HOME / SELF CARE / HOMELESS Condition: GOOD Referrals: TEREZA ORTEGA (PCP) Patient Instructions: Cough, Adult Additional Instructions: Thank you for coming into the emergency department tonight and allowing us to take care of you. Please read the attached information carefully to go back over some of the things we discussed. Please begin a Tylenol regimen as needed you can also add Benadryl as we discussed. You can also use [id number] cough medicine such as Delsym or Robitussin. Please call your primary care physician on Saturday to update on your ED visit. ANA TREVINO MD Mar 04, 2021 03:14
[2021-03-04] MEDS ORDERED: guaiFENesin/CODEINE 100mg/10mg 5 ML LIQUID PO PRN (03:30)
[2021-03-04] MEDS ORDERED: diphenhydrAMINE HCL 25 MG CAPSULE PO ONE (03:30)
[2021-03-04] MEDS ORDERED: ACETAMINOPHEN 500 MG TABLET PO ONE (03:30)
[2021-03-04 03:31] VITALS: BP 131/78
--- NOTE | 2021-03-04 03:59 | RAD ---
XR CHEST 1V Clinical Indication: Reason: cough / Comparison: Two-view chest February 24, 2021. Findings: The cardiomediastinal silhouette is normal. Lungs are clear. There is no pneumothorax. No pleural eff usion is appreciated. No acute bone abnormality. There are surgical clips in the left upper abdomen. IMPRESSION: No acute cardiopulmonary process. Electronically signed by: Chavo Chambers MD (03/04/2021 3:56 AM) [facility]
== END 2021-03-04 03:44 | disposition home or self-care (01) ==
LOC: ER 03:08
DX: R05.9 Cough, unspecified (principal); R09.81 Nasal congestion; E78.00 Pure hypercholesterolemia, unspecified; I11.9 Hypertensive heart disease without heart failure; Z88.8 Allergy status to other drugs, medicaments and biological substances
CPT/HCPCS: 71045; 99284; Q0163

== ENCOUNTER 2021-08-13 01:42 | Emergency (ER) | payer OTHER ==
[~2021-08-13] VITALS: Ht 175.3 cm; Wt 76.3 kg
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
[2021-08-13] MEDS: IV RINGERS SOLUTION,LACTATED 1,000 ML IV ONE (02:52)
[2021-08-13 03:05] LABS: BASO % 0 % (0-3); EOS # 0.1 x10^3/uL (0.0-0.7); EOS % 1 % (0-3); HEMOGLOBIN 15.5 g/dL (12.0-15.5); LYMPH % 61 % (24-48); MEAN CORPUSCULAR HEMOGLOBIN 33 pg (25-35); MEAN CORPUSCULAR HGB CONC 33 g/dL (31-37); MEAN CORPUSCULAR VOLUME 99 fL (79-100); MONO # 0.4 x10^3/uL (0.0-1.1); MONO % 6 % (0-9); NEUT % 31 % (31-73); PLATELET COUNT 207 x10^3/uL (140-400); RED BLOOD COUNT 4.76 x10^6/uL (3.50-5.40); RED CELL DISTRIBUTION WIDTH 14.5 % (11.5-14.5); WHITE BLOOD COUNT 6.5 x10^3/uL (4.0-11.0)
[2021-08-13 03:07] LABS: CALCIUM 9.2 mg/dL (8.5-10.1); CREATININE 0.4 mg/dL (0.6-1.0); GFR 183.8; POTASSIUM 3.5 mmol/L (3.5-5.1)
[2021-08-13 03:10] LABS: ALBUMIN 3.4 g/dL (3.4-5.0); ALBUMIN/GLOBULIN RATIO 0.8 (1.0-1.7); TOTAL BILIRUBIN 0.5 mg/dL (0.2-1.0); TOTAL PROTEIN 7.5 g/dL (6.4-8.2)
[2021-08-13] MEDS ORDERED: CONTRAST GIVEN. MC PRN (03:15)
[2021-08-13 03:19] LABS: BARBITURATES NEG (NEG); BENZODIAZEPINES NEG (NEG); CANNABINOIDS POS (NEG); COCAINE NEG (NEG); METHADONE NEG (NEG); OPIATES NEG (NEG); PHENCYCLIDINE NEG (NEG)
[2021-08-13 03:27] LABS: CLARITY,URINE CLEAR; COLOR,URINE YELLOW; GLUCOSE,URINE NEG (NEG)
[2021-08-13 03:28] LABS: BACTERIA,URINE MOD /HPF (0-FEW); NITRITE,URINE NEG (NEG); SQUAMOUS EPITHELIAL CELL,UR MOD /LPF; UROBILINOGEN,URINE 0.2 mg/dL (0.2 mg/dL)
[2021-08-13] MEDS ORDERED: IOHEXOL 300 MG/ML 75 ML VIAL. IV ONE (03:30)
[2021-08-13 03:33] LABS: AMPHETAMINE/METHAMPHETAMINE NEG (NEG)
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
[2021-08-13 04:30] LABS: INFLUENZA A PATIENT NEGATIVE (NEGATIVE); INFLUENZA B PATIENT NEGATIVE (NEGATIVE)
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
[2021-08-13] MEDS ORDERED: MORPHINE SULFATE 10 MG/ML SYRINGE. ONE (05:22)
[2021-08-13] MEDS ORDERED: FLUC100T7 PO (05:22)
[2021-08-13] MEDS ORDERED: CEPH500C PO (05:22)
[2021-08-13] MEDS: MORPHINE SULFATE 10 MG/ML SYRINGE. SQ ONE (05:24)
[2021-08-13] MEDS: CEPHALEXIN 250 MG CAPSULE PO ONE (05:24)
[2021-08-13 05:33] VITALS: BP 142/91
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
== END 2021-08-13 05:33 | disposition home or self-care (01) ==
LOC: ER 01:42
DX: S00.83XA Contusion of other part of head, initial encounter (principal); R04.0 Epistaxis; J32.1 Chronic frontal sinusitis; Z90.49 Acquired absence of other specified parts of digestive tract; Z20.822 Contact with and (suspected) exposure to COVID-19; Z98.51 Tubal ligation status; V43.52XA Car driver injured in collision with other type car in traffic accident, initial encounter; Y93.89 Activity, other specified; Y92.89 Other specified places as the place of occurrence of the external cause; Y99.8 Other external cause status
CPT/HCPCS: 36415; 70450; 70486; 71045; 71260; 72125; 74177; 80053; 80307; 81001; 81025; 83690; 84484; 84702; 85025; 87077; 87086; 87186; 87428; 96361; 96372; 96374; 99285; G0480; J2270; J3010; J7120

== ENCOUNTER → 2021-08-14 | Outpatient (CLI) | payer OTHER ==
[2021-08-13 05:33] VITALS: BP 142/91
[~2021-08-14] MED LIST changes: +FLUC100T7 PO
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
== END ==
LOC: RAD 15:09
PROVIDERS: ATTEND Physician Assistant Medical
DX: M79.89 Other specified soft tissue disorders (principal); M79.605 Pain in left leg; M25.552 Pain in left hip
CPT/HCPCS: 73502; 73552